=== PATIENT | male | born 1945 | race Caucasian/White ===

== ENCOUNTER 2016-11-28 08:00 | Outpatient (CLI) | payer BC ==
[2016-11-28 14:01] LABS: HEMOGLOBIN A1C 0.85 g/dL
[2016-11-28 14:22] LABS: ALBUMIN/GLOBULIN RATIO 1.3 (1.0-2.2); BILIRUBIN,TOTAL 0.5 mg/dL (0.2-1.0); BUN - BLOOD UREA NITROGEN 27 mg/dL (6-20); CALCIUM 9.4 mg/dL (8.5-10.3); CARBON DIOXIDE - CO2 25 mmol/L (21-32); CHLORIDE 106 mmol/L (101-111); CHOL/HDL RATIO 4.5 (<5.0); CHOLESTEROL 143 mg/dL; CREATININE 1.3 mg/dL (0.6-1.2); GFR - MDRD 55 (>89); GLUCOSE 151 mg/dL (70-100); HDL CHOLESTEROL 32 mg/dL; LDL/HDL RATIO 2.6 (<3.6); POTASSIUM 3.9 mmol/L (3.5-5.0); SODIUM 139 mmol/L (135-145); TOTAL PROTEIN 7.4 g/dL (6.7-8.2); TRIGLYCERIDES 133 mg/dL; VLDL CHOLESTEROL 27 mg/dL
== END 2016-11-28 08:01 | disposition home or self-care (01) ==
LOC: LAB.WCP 08:00
PROVIDERS: ATTEND Physician Assistant Medical
DX: E11.9 Type 2 diabetes mellitus without complications (principal)
CPT/HCPCS: 36415; 80053; 80061; 83036

== ENCOUNTER 2017-02-24 08:00 | Outpatient (CLI) | payer BC ==
[2017-02-24 19:46] LABS: ALBUMIN/GLOBULIN RATIO 1.2 (1.0-2.2); BILIRUBIN,TOTAL 0.6 mg/dL (0.2-1.0); CALCIUM 9.1 mg/dL (8.5-10.3); CREATININE 1.2 mg/dL (0.6-1.2); POTASSIUM 3.9 mmol/L (3.5-5.0); TOTAL PROTEIN 7.6 g/dL (6.7-8.2)
[2017-02-24 20:17] LABS: HEMOGLOBIN A1C 0.96 g/dL
== END 2017-02-24 08:01 | disposition home or self-care (01) ==
LOC: LAB.WCP 08:00
PROVIDERS: ATTEND Physician Assistant Medical
DX: E11.9 Type 2 diabetes mellitus without complications (principal)
CPT/HCPCS: 36415; 80053; 83036

== ENCOUNTER 2017-06-02 10:15 | Outpatient (CLI) | payer BC ==
[2017-06-02 19:08] LABS: BASOPHILS % (AUTO) 0.4 %; EOSINOPHILS # (AUTO) 0.1 10^3/uL (0.0-0.7); EOSINOPHILS % (AUTO) 1.7 %; HGB - HEMOGLOBIN 15.3 g/dL (14.0-18.0); LYMPHOCYTES # (AUTO) 1.7 10^3/uL (1.5-3.5); LYMPHOCYTES % (AUTO) 24.2 %; MEAN CORPUSCULAR HEMOGLOBIN 30.8 pg (27.0-31.0); MEAN CORPUSCULAR HGB CONC 33.4 g/dL (32.0-36.0); MEAN CORPUSCULAR VOLUME 92.2 fL (80.0-94.0); MEAN PLATELET VOLUME 8.7 fL (7.4-11.4); MONOCYTES # (AUTO) 0.6 10^3/uL (0.0-1.0); MONOCYTES % (AUTO) 9.3 %; NEUTROPHILS # (AUTO) 4.4 10^3/uL (1.5-6.6); NEUTROPHILS % (AUTO) 64.4 %; PLT - PLATELET COUNT 225 10^3/uL (130-450); RED BLOOD COUNT 4.97 10^6/uL (4.70-6.10); RED CELL DISTRIBUTION WIDTH 13.7 % (12.0-15.0); WHITE BLOOD COUNT 6.8 x10^3/uL (4.8-10.8)
[2017-06-02 19:26] LABS: ALBUMIN 4.1 g/dL (3.2-5.5); ALBUMIN/GLOBULIN RATIO 1.2 (1.0-2.2); ALKALINE PHOSPHATASE 37 IU/L (42-121); ALT ALANINE AMINOTRANSFERASE 27 IU/L (10-60); AST ASPARTATE AMINOTRANSFERASE 23 IU/L (10-42); BILIRUBIN,TOTAL 0.5 mg/dL (0.2-1.0); BUN - BLOOD UREA NITROGEN 26 mg/dL (6-20); CARBON DIOXIDE - CO2 25 mmol/L (21-32); CHLORIDE 106 mmol/L (101-111); CHOL/HDL RATIO 4.3 (<5.0); CHOLESTEROL 153 mg/dL; CREATININE 1.2 mg/dL (0.6-1.2); GFR - MDRD 60 (>89); GLUCOSE 135 mg/dL (70-100); HDL CHOLESTEROL 36 mg/dL; LDL CHOLESTEROL,CALCULATED 90 mg/dL; LDL/HDL RATIO 2.5 (<3.6); SODIUM 139 mmol/L (135-145); TOTAL PROTEIN 7.5 g/dL (6.7-8.2); VLDL CHOLESTEROL 27 mg/dL
[2017-06-02 19:44] LABS: HB2 TOTAL 16.7 g/dL; HEMOGLOBIN A1C 0.83 g/dL; HEMOGLOBIN A1C % 6.7 % (4.6-6.2)
== END 2017-06-02 10:16 | disposition home or self-care (01) ==
LOC: LAB.WCP 10:15
PROVIDERS: ATTEND Physician Assistant Medical
DX: E11.9 Type 2 diabetes mellitus without complications (principal); E78.1 Pure hyperglyceridemia; Z12.5 Encounter for screening for malignant neoplasm of prostate; K21.9 Gastro-esophageal reflux disease without esophagitis
CPT/HCPCS: 36415; 80053; 80061; 82043; 83036; 83721; 84153; 85025

== ENCOUNTER 2017-09-01 08:24 | Outpatient (CLI) | payer BC ==
[2017-09-01 12:45] LABS: CREATININE 1.1 mg/dL (0.6-1.2)
[2017-09-01 13:08] LABS: HB2 TOTAL 15.7 g/dL; HEMOGLOBIN A1C 0.83 g/dL
== END 2017-09-01 08:25 | disposition home or self-care (01) ==
LOC: LAB.WCP 08:24
PROVIDERS: ATTEND Physician Assistant Medical
DX: E11.9 Type 2 diabetes mellitus without complications (principal)
CPT/HCPCS: 36415; 80048; 83036

== ENCOUNTER 2017-09-18 07:36 | Emergency (ER) | payer BC ==
--- NOTE | 2017-09-18 08:23 | ED Physician Documentation ---
History of Present Illness - Stated complaint Stated Complaint: R ARM NUMBNESS/BACK PX - Chief complaint Chief Complaint: Ext Problem - History obtained from History obtained from: Patient, Family - History of Present Illness Timing: How many days ago (3) - Additonal information Additional information: 72 y/o male with symptoms beginning 3 days ago while he was walking to [place] with low back pain and finger numbness on the right side. He had similar symptoms when returning home from [place]. Symptoms resolved and returned the next day less but worse with exertion. Similar yesterday and then this morning at 4am he was awakened with pain in his back both arms his neck and a headache and this was much worse than previously. He was not able to get dressed and his reports that he was pale and appeared ill. His pain resolved after about one hour and then he was able to get dressed and he went outside to test his exercise tolerance and found he did not have symptoms. He was perplexed and came to the ED with symptoms resolved except for a slight amount of right arm numbness. He reports some substernal pain with the episode this morning and a stomach ache over the weekend. Review of Systems Constitutional: denies: Fever Eyes: denies: Decreased vision Ears: denies: Ear pain Nose: denies: Congestion Throat: denies: Sore throat Cardiac: reports: Chest pain / pressure. denies: Palpitations, Pedal edema, Calf pain Respiratory: denies: Dyspnea, Cough, Wheezing GI: reports: Abdominal Pain, Diarrhea (once yesterday). denies: Nausea, Vomiting, Constipation : denies: Dysuria, Frequency Skin: denies: Rash Musculoskeletal: reports: Neck pain, Back pain Neurologic: reports: Numbness, Headache. denies: Generalized weakness, Focal weakness, Head injury, LOC PD PAST MEDICAL HISTORY - Past Medical History Past Medical History: Yes Cardiovascular: Hypertension, High cholesterol Respiratory: Other Endocrine/Autoimmune: Type 2 diabetes GI: Colon polyps : Benign prostate hypertrophy HEENT: None Psych: Anxiety Derm: None - Past Surgical History Past Surgical History: Yes General: Cholecystectomy, Appendectomy HEENT: Tonsil/Adenoidectomy, Other - Present Medications Home Medications: Ambulatory Orders Medication Instructions Recorded Confirmed Azelastine HCl [Astelin] 02/10/14 02/10/14 Cyanocobalamin (Vitamin B-12) 250 mcg PO 02/10/14 02/10/14 [Vitamin B-12] Fenofibrate 160 mg PO DAILY 02/10/14 02/11/14 Fluticasone [Flonase] 1 sprays MANI BID PRN 02/10/14 02/10/14 Losartan [Cozaar] 50 mg PO DAILY 02/10/14 02/10/14 Metformin HCl 1,000 mg PO DAILY 02/10/14 02/11/14 [place]-3 Fatty Acids [[place]-3] 2,000 mg PO DAILY 02/10/14 02/11/14 Simvastatin 20 mg PO DAILY 02/10/14 02/11/14 Vit D3-Vit K/Berberine/Hops 1 tab ORAL DAILY 02/10/14 02/11/14 [Ostera Tablet] raNITIdine [Zantac] 150 mg ORAL DAILY 02/10/14 02/11/14 - Allergies Allergies/Adverse Reactions: Allergies Allergy/AdvReac Type Severity Reaction Status Date / Time Penicillins Allergy Edema Verified 02/10/14 10:27 diphenhydramine HCl * AdvReac Unknown Verified 02/10/14 10:27 [From Benadryl] lisinopril AdvReac Unknown Verified 02/10/14 10:27 prednisone AdvReac Unknown Verified 02/10/14 10:27 - Social History Does the pt smoke?: No Smoking Status: Never smoker Does the pt drink ETOH?: No - Immunizations Immunizations are current?: Yes PD ED PE NORMAL - Vitals Vital signs reviewed: Yes (hypertensive mild ) - General General: Alert and oriented X 3, No acute distress, Well developed/nourished - HEENT HEENT: Atraumatic, PERRL, EOMI - Neck Neck: Supple, no meningeal sign, No bony TTP - Cardiac Cardiac: RRR, No murmur - Respiratory Respiratory: No respiratory distress, Clear bilaterally - Abdomen Abdomen: Soft, Non tender - Back Back: No CVA TTP, No spinal TTP - Derm Derm: Normal color, Warm and dry, No rash - Extremities Extremities: No deformity, No edema - Neuro Neuro: No motor deficit, No sensory deficit Eye Opening: Spontaneous Motor: Obeys Commands Verbal: Oriented GCS Score: 15 - Psych Psych: Normal mood, Normal affect Results - Vitals Vitals: Vital Signs - 24 hr 09/18/17 09/18/17 07:44 10:24 Temperature 36.2 C L 36.6 C Heart Rate 88 79 Respiratory 18 18 Rate Blood Pressure 138/89 H 146/89 H O2 Saturation 95 96 Oxygen O2 Source Room air - EKG (time done) 0835 Rate: Rate (enter#) (82) Rhythm: NSR Intervals: RBBB Ischemia: Q waves (consistent with prior inferior) Compare to prior EKG: Old EKG unavailable Computer interpretation: Agree with computer - Labs Labs: Laboratory Tests 09/18/17 09/18/17 09/18/17 08:33 08:33 08:33 WBC 5.7 RBC 4.76 Hgb 14.8 Hct 43.2 MCV 90.7 MCH 31.2 H MCHC 34.4 RDW 13.8 Plt Count 192 MPV 7.5 Neut # 3.8 Lymph # 1.1 L Cole # 0.7 Eos # 0.2 Baso # 0.0 Absolute Nucleated RBC 0.00 Nucleated RBC % 0.0 Sodium 137 Potassium 3.9 Chloride 105 Carbon Dioxide 24 Anion Gap 8.0 BUN 25 H Creatinine 1.2 Estimated GFR (MDRD) 60 L Glucose 164 H Calcium 8.9 Total Bilirubin 0.9 AST 20 ALT 21 Alkaline Phosphatase 38 L Troponin I 0.08 Total Protein 7.4 Albumin 3.9 Globulin 3.5 Albumin/Globulin Ratio 1.1 Lipase 21 L 09/18/17 10:40 WBC RBC Hgb Hct MCV MCH MCHC RDW Plt Count MPV Neut # Lymph # Cole # Eos # Baso # Absolute Nucleated RBC Nucleated RBC % Sodium Potassium Chloride Carbon Dioxide Anion Gap BUN Creatinine Estimated GFR (MDRD) Glucose Calcium Total Bilirubin AST ALT Alkaline Phosphatase Troponin I 0.10 Total Protein Albumin Globulin Albumin/Globulin Ratio Lipase - Rads (name of study) 2 veiw chest Radiology: Prelim report reviewed (Impression: No active cardiopulmonary disease.), EMP read indepedently, See rad report PD MEDICAL DECISION MAKING - ED course Complexity details: reviewed results, re-evaluated patient, considered differential, d/w patient, d/w family ED course: 72-year-old male with atypical symptoms of chest pain has some exertional component to his complaints and development of symptoms while asleep. The episode he had this morning was significant in that it was much worse than what he experienced 2 previous days and this morning as he arrives to the emergency department his symptoms are resolved but he does have a mild elevation in his in his troponin. A follow-up troponin II hours after is slightly increased from that. The patient's electric cardiogram shows a right bundle branch block and inferior Q waves and we have nothing for comparison. I suspect the patient may have an NSTEMI and arrangements were made for transfer the patient to [facility] in [place] with Dr. Caryn holder. He is given 324 mg of aspirin and started on a heparin drip. Departure - Departure Disposition: 02 Transfer Acute Care Hosp Clinical Impression: NSTEMI (non-ST elevated myocardial infarction) Condition: Stable
[2017-09-18 08:40] LABS: BASOPHILS % (AUTO) 0.4 %; EOSINOPHILS # (AUTO) 0.2 10^3/uL (0.0-0.7); HGB - HEMOGLOBIN 14.8 g/dL (14.0-18.0); LYMPHOCYTES # (AUTO) 1.1 10^3/uL (1.5-3.5); LYMPHOCYTES % (AUTO) 19.1 %; MEAN CORPUSCULAR HEMOGLOBIN 31.2 pg (27.0-31.0); MEAN CORPUSCULAR HGB CONC 34.4 g/dL (32.0-36.0); MEAN CORPUSCULAR VOLUME 90.7 fL (80.0-94.0); MEAN PLATELET VOLUME 7.5 fL (7.4-11.4); MONOCYTES # (AUTO) 0.7 10^3/uL (0.0-1.0); MONOCYTES % (AUTO) 11.5 %; NEUTROPHILS # (AUTO) 3.8 10^3/uL (1.5-6.6); PLT - PLATELET COUNT 192 10^3/uL (130-450); RED BLOOD COUNT 4.76 10^6/uL (4.70-6.10); RED CELL DISTRIBUTION WIDTH 13.8 % (12.0-15.0); WHITE BLOOD COUNT 5.7 x10^3/uL (4.8-10.8)
[2017-09-18 08:51] LABS: ALBUMIN 3.9 g/dL (3.2-5.5); ALBUMIN/GLOBULIN RATIO 1.1 (1.0-2.2); BILIRUBIN,TOTAL 0.9 mg/dL (0.2-1.0); CALCIUM 8.9 mg/dL (8.5-10.3); CREATININE 1.2 mg/dL (0.6-1.2); TOTAL PROTEIN 7.4 g/dL (6.7-8.2)
--- NOTE | 2017-09-18 09:49 | XRAY Report ---
EXAM: CHEST RADIOGRAPHY EXAM DATE: 09/18/2017 09:03 AM. CLINICAL HISTORY: Chest pain. COMPARISON: None. TECHNIQUE: 2 views. FINDINGS: Lungs/Pleura: No focal opacities evident. No pleural effusion. No pneumothorax. Normal volumes. Mediastinum: Heart and mediastinal contours are unremarkable. Other: Mild wedging mid thoracic vertebral bodies IMPRESSION: No active cardiopulmonary disease [facility] Referring Provider Line: [phone] SITE ID: [id number]
--- NOTE | 2017-09-18 09:49 | XRAY Preliminary Report ---
Exam: XR CHEST 2 VIEW X-RAY IMPRESSION: No active cardiopulmonary disease [facility] SITE ID: [id number]
[2017-09-18] MEDS ORDERED: HEPARIN 5,000 UNIT/ML VIAL IVP ONE (11:57)
[2017-09-18] MEDS ORDERED: ASPIRIN CHEW 81 MG TABLET PO STA (11:57)
[2017-09-18] MEDS ORDERED: HEPARIN 25000UNITS/500ML (D5W) 25,000 UNIT/500 ML BAG IV STA (12:47)
[2017-09-18 12:51] VITALS: BP 134/112
[2017-09-18] MEDS ORDERED: HEPARIN 25000UNITS/500ML (D5W) 25,000 UNIT/500 ML BAG IV ONE (12:58)
== END 2017-09-18 12:53 | disposition short-term general hospital (02) ==
LOC: ED 07:36
DX: I21.4 Non-ST elevation (NSTEMI) myocardial infarction (principal); I45.10 Unspecified right bundle-branch block; I10 Essential (primary) hypertension; E78.00 Pure hypercholesterolemia, unspecified; E11.9 Type 2 diabetes mellitus without complications; Z79.84 Long term (current) use of oral hypoglycemic drugs
CPT/HCPCS: 36415; 71046; 80053; 83690; 84484; 85025; 93005; 96374; 99284; A9270

== ENCOUNTER 2017-09-18 12:56 | Outpatient (CLI) | payer BC | END 2017-09-18 12:57 | disposition short-term general hospital (02) | LOC: EMS 12:56 | PROVIDERS: ATTEND Surgery | DX: R07.9 Chest pain, unspecified (principal) | CPT/HCPCS: A0425; A0426 ==

== ENCOUNTER 2017-10-03 08:00 | Outpatient (CLI) | payer BC ==
[2017-10-03 19:23] LABS: CALCIUM 9.1 mg/dL (8.5-10.3); CREATININE 1.1 mg/dL (0.6-1.2)
== END 2017-10-03 08:01 | disposition home or self-care (01) ==
LOC: LAB.WCP 08:00
PROVIDERS: ATTEND Family Medicine
DX: H53.72 Impaired contrast sensitivity (principal)
CPT/HCPCS: 36415; 80048

== ENCOUNTER 2017-11-30 07:46 | Outpatient (CLI) | payer BC ==
[2017-11-30 12:52] LABS: ALBUMIN 3.8 g/dL (3.2-5.5); ALBUMIN/GLOBULIN RATIO 1.2 (1.0-2.2); ALKALINE PHOSPHATASE 35 IU/L (42-121); ALT ALANINE AMINOTRANSFERASE 18 IU/L (10-60); AST ASPARTATE AMINOTRANSFERASE 20 IU/L (10-42); BILIRUBIN,TOTAL 0.9 mg/dL (0.2-1.0); BUN - BLOOD UREA NITROGEN 18 mg/dL (6-20); CARBON DIOXIDE - CO2 25 mmol/L (21-32); CHLORIDE 107 mmol/L (101-111); CHOL/HDL RATIO 4.4 (<5.0); CHOLESTEROL 115 mg/dL; CREATININE 1.2 mg/dL (0.6-1.2); GFR - MDRD 60 (>89); GLUCOSE 123 mg/dL (70-100); HDL CHOLESTEROL 26 mg/dL; LDL CHOLESTEROL,CALCULATED 65 mg/dL; LDL/HDL RATIO 2.5 (<3.6); SODIUM 139 mmol/L (135-145); TOTAL PROTEIN 7.1 g/dL (6.7-8.2); VLDL CHOLESTEROL 24 mg/dL
[2017-11-30 13:25] LABS: HB2 TOTAL 14.9 g/dL; HEMOGLOBIN A1C 0.71 g/dL; HEMOGLOBIN A1C % 6.5 % (4.6-6.2)
== END 2017-11-30 07:47 | disposition home or self-care (01) ==
LOC: LAB.WCP 07:46
PROVIDERS: ATTEND Physician Assistant Medical
DX: E11.9 Type 2 diabetes mellitus without complications (principal)
CPT/HCPCS: 36415; 80053; 80061; 83036; 83721

== ENCOUNTER 2018-03-05 08:53 | Outpatient (CLI) | payer BC ==
[2018-03-05 14:44] LABS: HB2 TOTAL 14.4 g/dL; HEMOGLOBIN A1C 0.63 g/dL; HEMOGLOBIN A1C % 6.2 % (4.6-6.2)
[2018-03-05 14:47] LABS: CALCIUM 9.4 mg/dL (8.5-10.3); CREATININE 1.2 mg/dL (0.6-1.2)
== END 2018-03-05 08:54 | disposition home or self-care (01) ==
LOC: LAB.WCP 08:53
PROVIDERS: ATTEND Physician Assistant Medical
DX: E11.9 Type 2 diabetes mellitus without complications (principal)
CPT/HCPCS: 36415; 80048; 83036

== ENCOUNTER 2018-07-19 08:00 | Outpatient (CLI) | payer BC ==
[2018-07-19 14:07] LABS: ALBUMIN/GLOBULIN RATIO 1.3 (1.0-2.2); ALKALINE PHOSPHATASE 37 IU/L (42-121); ALT ALANINE AMINOTRANSFERASE 20 IU/L (10-60); AST ASPARTATE AMINOTRANSFERASE 20 IU/L (10-42); BILIRUBIN,TOTAL 0.6 mg/dL (0.2-1.0); BUN - BLOOD UREA NITROGEN 30 mg/dL (6-20); CARBON DIOXIDE - CO2 28 mmol/L (21-32); CHLORIDE 106 mmol/L (101-111); CHOL/HDL RATIO 3.2 (<5.0); CHOLESTEROL 125 mg/dL; GFR - MDRD 74 (>89); GLUCOSE 133 mg/dL (70-100); HDL CHOLESTEROL 39 mg/dL; LDL CHOLESTEROL,CALCULATED 64 mg/dL; LDL/HDL RATIO 1.6 (<3.6); SODIUM 141 mmol/L (135-145); TOTAL PROTEIN 7.2 g/dL (6.7-8.2); VLDL CHOLESTEROL 22 mg/dL
[2018-07-19 14:48] LABS: HB2 TOTAL 15.6 g/dL; HEMOGLOBIN A1C 0.76 g/dL; HEMOGLOBIN A1C % 6.6 % (4.6-6.2)
== END 2018-07-19 08:01 | disposition home or self-care (01) ==
LOC: LAB.WCP 08:00
PROVIDERS: ATTEND Physician Assistant Medical
DX: E11.9 Type 2 diabetes mellitus without complications (principal)
CPT/HCPCS: 36415; 80053; 80061; 83036; 83721

== ENCOUNTER 2018-09-13 05:56 | Day surgery (SDC) | payer BC ==
[2018-09-13] MEDS ORDERED: KETOROLAC 0.45% OPHTH DROPS ONE (06:27)
[2018-09-13] MEDS ORDERED: PROPARACAINE 0.5% OPHTH DROPS 15 ML ONE (06:28)
[2018-09-13] MEDS ORDERED: PHENYLEPHRINE 2.5% OPHTH 2 ML DROPS ONE (06:28)
[2018-09-13] MEDS ORDERED: CYCLOPENTOLATE 1% OPHTH DROPS 2 ML ONE (06:28)
[2018-09-13] MEDS ORDERED: LACTATED RINGERS 500 ML IV ONE (06:32)
[2018-09-13] MEDS ORDERED: KETOROLAC 0.45% OPHTH DROPS LEFTEYE ONE (06:40)
[2018-09-13] MEDS ORDERED: CYCLOPENTOLATE 1% OPHTH DROPS 2 ML LEFTEYE ONE (06:40)
[2018-09-13] MEDS ORDERED: PROPARACAINE 0.5% OPHTH DROPS 15 ML LEFTEYE ONE ×2 (06:40→07:36)
[2018-09-13] MEDS ORDERED: PHENYLEPHRINE 2.5% OPHTH 2 ML DROPS LEFTEYE ONE (06:40)
--- NOTE | 2018-09-13 07:01 | ANESTHESIA ---
Pre-Anesthesia VS, & Labs - Diagnosis L nuclear sclerotic cataract - Procedure L extraction cataract with IOL Vital Signs: Temp Pulse Resp BP Pulse Ox 36.8 C 70 16 137/76 H 99 09/13/18 06:33 09/13/18 06:33 09/13/18 06:33 09/13/18 06:33 09/13/18 06:33 Height 5 ft 7 in Weight (kg) 97.9 kg Body Mass Index 32.5 - Lab Results Current Lab Results: Laboratory Tests 09/13/18 06:48: POC Whole Bld Glucose 129 H Home Medications and Allergies Home Medications: Ambulatory Orders Atorvastatin Calcium 80 mg PO DAILY 09/12/18 Metoprolol Succinate 25 mg PO DAILY 09/12/18 Azelastine HCl [Astelin] 1 puffs MANI DAILY 02/10/14 Cyanocobalamin (Vitamin B-12) [Vitamin B-12] 250 mcg PO DAILY 02/10/14 Fenofibrate 160 mg PO DAILY 02/10/14 Fluticasone [Flonase] 1 sprays MANI BID PRN 02/10/14 Losartan [Cozaar] 50 mg PO DAILY 02/10/14 Metformin HCl 1,000 mg PO DAILY 02/10/14 [place]-3 Fatty Acids [[place]-3] 2,000 mg PO DAILY 02/10/14 Vit D3-Vit K/Berberine/Hops [Ostera Tablet] 1 tab ORAL DAILY 02/10/14 raNITIdine [Zantac] 150 mg ORAL DAILY 02/10/14 Atorvastatin Calcium 80 mg PO DAILY 09/12/18 Metoprolol Succinate 25 mg PO DAILY 09/12/18 Allergies/Adverse Reactions: Allergies Allergy/AdvReac Type Severity Reaction Status Date / Time Penicillins Allergy Edema Verified 02/10/14 10:27 diphenhydramine HCl * AdvReac Unknown Verified 02/10/14 10:27 [From Benadryl] lisinopril AdvReac Unknown Verified 02/10/14 10:27 prednisone AdvReac Unknown Verified 02/10/14 10:27 Anes History & Medical History - Anesthetic History Anesthesia Complications: reports: No previous complications Family history of Anesthesia Complications: Denies Family history of Malignant Hyperthermia: Denies - Medical History Cardiovascular: reports: Hypertension, High cholesterol, ID, Other (stent 09/2017) Pulmonary: reports: Sleep apnea, Other Gastrointestinal: reports: GERD, Colon polyps Urinary: reports: Benign prostate hypertrophy, Kidney stones Musculoskeletal: reports: Chronic back pain Endocrine/Autoimmune: reports: Type 2 diabetes Skin: reports: None Smoking Status: Never smoker - Surgical History General: Cholecystectomy, Appendectomy, Colonoscopy Eyes Ears Nose Throat (EENT): Tonsil/Adenoidectomy, Other Cardiothoracic: Coronary stent Exam General: Alert, Oriented x3 Dental: WNL Mouth Openin Fingerbreadth Neck Mobility: Normal Mallampati classification: II Thyromental Distance: 4-6 cm Respiratory: Lungs clear, Normal breath sounds, No respiratory distress Cardiovascular: Regular rate Neurological: Normal speech Mental/Cognitive Status: Alert/Oriented X3, Normal for patient Cognitive Status: Within normal limits Plan Anesthesia Type: MAC Consent for Procedure(s) Verified and Reviewed: Yes Code Status: Attempt Resuscitation ASA classification: 3-Severe systemic disease Is this case an emergency?: No
[2018-09-13] MEDS ORDERED: TRIAMCIN/MOXIFLOX OPHTHALMIC 0.6 ML VIAL IO ONE ×2 (07:05→07:36)
[2018-09-13] MEDS ORDERED: TIMOLOL 0.5% OPHTH DROPS ONE (07:06)
[2018-09-13] MEDS ORDERED: EPINEPHrine 1 MG/ML AMP ONE (07:06)
[2018-09-13] MEDS ORDERED: BRIMONIDINE 0.2% OPHTH DROPS 5 ML ONE (07:06)
[2018-09-13] MEDS ORDERED: BSS/LIDOCAINE/EPINEPHRINE 1 ML SYRINGE ONE (07:07)
[2018-09-13] MEDS ORDERED: VANCOMYCIN OPHTHALMI 8MG/0.8ML 8 MG/0.8 ML SYRINGE IO ONE (07:07)
[2018-09-13] MEDS ORDERED: MIDAZOLAM 2 MG/2 ML VIAL IVP ONE (07:30)
[2018-09-13] MEDS ORDERED: EPINEPHrine 1 MG/ML AMP IVP ONE (07:35)
[2018-09-13] MEDS ORDERED: BRIMONIDINE 0.2% OPHTH DROPS 5 ML OPTH ONE (07:35)
[2018-09-13] MEDS ORDERED: CHONDR SULF/HYALURONATE SYRINGE IO ONE (07:35)
[2018-09-13] MEDS ORDERED: TIMOLOL 0.5% OPHTH DROPS OPTH ONE (07:35)
[2018-09-13] MEDS ORDERED: BSS/LIDOCAINE/EPINEPHRINE 1 ML SYRINGE IO ONE (07:36)
[2018-09-13 08:02] VITALS: BP 112/60
--- NOTE | 2018-09-13 11:20 | OPERATIVE REPORT ---
DATE OF SERVICE: 09/13/2018 Physician: Víctor Vela MD PREOPERATIVE DIAGNOSIS: Visually significant cataract, left eye. This was his first cataract surger y. POSTOPERATIVE DIAGNOSIS: Visually significant cataract, left eye. This was his first cataract surge ry. DESCRIPTION OF PROCEDURE: Phacoemulsification with posterior chamber intraocular lens implant, left eye. SURGEON: Víctor Vela MD ANESTHESIA: Monitored anesthesia care. COMPLICATIONS: None. OPERATIVE INDICATIONS: This is a 73-year-old man with progressive vision loss in the left eye due to a 2-3+ nuclear sclerotic cataract. Best corrected visual acuity was 20/30 with glare to 20/70 in th e left eye. Indications for surgery are overall decrease in vision, difficulty seeing words on a com puter screen; difficulty seeing words, closed caption or game scores on TV; and difficulty seeing str eet signs. He was consented at length concerning risks and benefits of cataract surgery, after which he expressed a desire to proceed with surgery. OPERATIVE PROCEDURE: The patient was taken into OR #3 and placed under monitored anesthesia care. A surgical timeout was conducted confirming correct patient, correct procedure, and correct surgical s ite. He was given topical anesthesia, and then prepped and draped in the usual sterile fashion. The eye was entered at the 6 and 3 o'clock positions. Intracameral Shugarcaine was injected into the an terior chamber, followed by Viscoat. A continuous-tear curvilinear capsulorrhexis was performed. Th e nucleus was hydrodissected and phacoemulsified. The cortex was evacuated using automated infusion and aspiration. Provisc was injected into the capsular bag, and a 14.0 diopter intraocular lens inse rted in the bag. Approximately 0.8 mL of a mixture of triamcinolone, moxifloxacin, and vancomycin wa s injected subconjunctivally in the superior quadrant for infection and inflammation prophylaxis. I and A was used to evacuate the viscoelastic materials. The eye was inflated to a physiologic pressur e using a balanced salt solution and found to be watertight. The patient was taken from the [facility] room in good condition and given postoperative instructions. TD: 09/13/2018 07:55
== END 2018-09-13 05:57 | disposition home or self-care (01) ==
LOC: SDS 05:56
PROVIDERS: ATTEND Ophthalmology
PROC: 08RK3JZ Replacement of Left Lens with Synthetic Substitute, Percutaneous Approach (ICD-10-PCS; principal; 2018-09-13 07:30)
DX: E11.36 Type 2 diabetes mellitus with diabetic cataract (principal); I10 Essential (primary) hypertension; E78.00 Pure hypercholesterolemia, unspecified; G47.30 Sleep apnea, unspecified; K21.9 Gastro-esophageal reflux disease without esophagitis; N40.0 Benign prostatic hyperplasia without lower urinary tract symptoms; G89.29 Other chronic pain; M54.9 Dorsalgia, unspecified; I25.2 Old myocardial infarction; Z95.5 Presence of coronary angioplasty implant and graft; Z79.82 Long term (current) use of aspirin; Z79.84 Long term (current) use of oral hypoglycemic drugs
CPT/HCPCS: 66984; A9270; J3490; V2632

== ENCOUNTER 2018-10-25 07:50 | Outpatient (CLI) | payer BC ==
[2018-10-25 14:21] LABS: CALCIUM 9.2 mg/dL (8.5-10.3); CREATININE 1.3 mg/dL (0.6-1.2)
== END 2018-10-25 07:51 | disposition home or self-care (01) ==
LOC: LAB.WCP 07:50
PROVIDERS: ATTEND Physician Assistant Medical
DX: E11.9 Type 2 diabetes mellitus without complications (principal)
CPT/HCPCS: 36415; 80048; 81599; 83036

== ENCOUNTER 2018-11-01 07:38 | Day surgery (SDC) | payer BC ==
[~2018-11-01 07:38] MED LIST: BRIMONIDINE 0.2% OPHTH DROPS 5 ML ONE; BSS/LIDOCAINE/EPINEPHRINE 1 ML SYRINGE ONE; CYCLOPENTOLATE 1% OPHTH DROPS 2 ML ONE; EPINEPHrine 1 MG/ML AMP ONE; KETOROLAC 0.45% OPHTH DROPS ONE; PHENYLEPHRINE 2.5% OPHTH 2 ML DROPS ONE; PROPARACAINE 0.5% OPHTH DROPS 15 ML ONE; TIMOLOL 0.5% OPHTH DROPS ONE; TRIAMCIN/MOXIFLOX OPHTHALMIC 0.6 ML VIAL IO ONE; VANCOMYCIN OPHTHALMI 8MG/0.8ML 8 MG/0.8 ML SYRINGE IO ONE
[2018-11-01] MEDS ORDERED: PROPARACAINE 0.5% OPHTH DROPS 15 ML RIGHTEYE ONE (07:57)
[2018-11-01] MEDS ORDERED: KETOROLAC 0.45% OPHTH DROPS RIGHTEYE ONE (07:57)
[2018-11-01] MEDS ORDERED: PHENYLEPHRINE 2.5% OPHTH 2 ML DROPS RIGHTEYE ONE (07:57)
[2018-11-01] MEDS ORDERED: CYCLOPENTOLATE 1% OPHTH DROPS 2 ML RIGHTEYE ONE (07:57)
[2018-11-01] MEDS ORDERED: LACTATED RINGERS 500 ML IV ONE (08:00)
--- NOTE | 2018-11-01 08:17 | ANESTHESIA ---
Pre-Anesthesia VS, & Labs - Diagnosis right nuclear sclerotic cataract - Procedure right cataract extraction with intraocular lens Vital Signs: Temp Pulse Resp BP Pulse Ox 36.2 C L 65 18 127/86 H 99 11/01/18 07:48 11/01/18 07:48 11/01/18 07:48 11/01/18 07:48 11/01/18 07:48 Height 5 ft 7 in Weight (kg) 100 kg Body Mass Index 32.5 - NPO >8 hours Home Medications and Allergies Cyanocobalamin (Vitamin B-12) [Vitamin B-12] 250 mcg PO DAILY 02/10/14 Fenofibrate 160 mg PO DAILY 02/10/14 Losartan [Cozaar] 50 mg PO DAILY 02/10/14 Metformin HCl 1,000 mg PO DAILY 02/10/14 [place]-3 Fatty Acids [[place]-3] 2,000 mg PO DAILY 02/10/14 Vit D3-Vit K/Berberine/Hops [Ostera Tablet] 1 tab ORAL DAILY 02/10/14 raNITIdine [Zantac] 150 mg ORAL DAILY 02/10/14 Atorvastatin Calcium 80 mg PO DAILY 09/12/18 Metoprolol Succinate 25 mg PO DAILY 09/12/18 Allergies/Adverse Reactions: Allergies Allergy/AdvReac Type Severity Reaction Status Date / Time Penicillins Allergy Edema Verified 10/31/18 15:29 diphenhydramine HCl * AdvReac Unknown Verified 10/31/18 15:29 [From Benadryl] lisinopril AdvReac Unknown Verified 10/31/18 15:29 prednisone AdvReac Unknown Verified 10/31/18 15:29 Anes History & Medical History - Anesthetic History Anesthesia Complications: reports: Pseudocholinesterase deficiency (possible had 8 hour delay waking up and felt like "I was underwater"), Prolonged PACU stay, Slow wake-up - Medical History Cardiovascular: reports: Hypertension, High cholesterol, Coronary artery disease Pulmonary: reports: None Gastrointestinal: reports: GERD Urinary: reports: Kidney stones Musculoskeletal: reports: Osteoarthritis, Other Endocrine/Autoimmune: reports: Type 2 diabetes Skin: reports: Herpes zoster Smoking Status: Never smoker - Surgical History General: Cholecystectomy, Appendectomy Eyes Ears Nose Throat (EENT): Tonsil/Adenoidectomy Cardiothoracic: Coronary stent, Cardiac catheterization Exam Dental: WNL, Dentures full Upper, Dentures full Lower Mouth Opening: Greater than 4 Fingerbreadths Mallampati classification: III Thyromental Distance: greater than 6 cm Respiratory: Lungs clear Cardiovascular: Regular rate, Normal S1, Normal S2 Plan Anesthesia Type: MAC Consent for Procedure(s) Verified and Reviewed: Yes Code Status: Attempt Resuscitation ASA classification: 3-Severe systemic disease Is this case an emergency?: No
[2018-11-01] MEDS ORDERED: MIDAZOLAM 2 MG/2 ML VIAL IVP ONE (09:00)
[2018-11-01] MEDS ORDERED: BRIMONIDINE 0.2% OPHTH DROPS 5 ML OPTH ONE (09:05)
[2018-11-01] MEDS ORDERED: EPINEPHrine 1 MG/ML AMP IVP ONE (09:05)
[2018-11-01] MEDS ORDERED: CHONDR SULF/HYALURONATE SYRINGE IO ONE (09:05)
[2018-11-01] MEDS ORDERED: TIMOLOL 0.5% OPHTH DROPS OPTH ONE (09:05)
[2018-11-01] MEDS ORDERED: TRIAMCIN/MOXIFLOX OPHTHALMIC 0.6 ML VIAL IO ONE (09:06)
[2018-11-01] MEDS ORDERED: BSS/LIDOCAINE/EPINEPHRINE 1 ML SYRINGE IO ONE (09:06)
[2018-11-01] MEDS ORDERED: VANCOMYCIN OPHTHALMI 8MG/0.8ML 8 MG/0.8 ML SYRINGE IO ONE (09:07)
[2018-11-01 09:14] VITALS: BP 110/60
--- NOTE | 2018-11-01 12:31 | OPERATIVE REPORT ---
DATE OF SERVICE: 11/01/2018 Physician: Víctor Vela MD PREOPERATIVE DIAGNOSIS: Visually significant cataract, right eye. Cataract surgery was performed on the left eye on a 09/13/2018 POSTOPERATIVE DIAGNOSIS: Visually significant cataract, right eye. Cataract surgery was performed o n the left eye on a 09/13/2018 PROCEDURE: Phacoemulsification with posterior chamber intraocular lens implant, right eye. SURGEON: Víctor Vela MD ANESTHESIA: Monitored anesthesia care. COMPLICATIONS: None. OPERATIVE INDICATIONS: This is a 73-year-old man with progressive vision loss in the right eye due t o 2 to 3+ nuclear sclerotic cataract. Best corrected visual acuity was 20/25, with glare to 20/50 in the right eye. Indications for surgery are overall decrease in vision, difficulty seeing words, khai sed captions or game scores on TV and difficulty seeing street signs. He was consented at length con cerning the risks and benefits of cataract surgery, after which he expressed a desire to proceed with surgery. OPERATIVE PROCEDURE: Patient was taken into OR #3 and placed under monitored anesthesia care. A josé gical timeout was conducted confirming the correct patient, correct procedure, and correct surgical s ite. He was given topical anesthesia and then prepped and draped in the usual sterile fashion. The eye was entered at the 12 and 9 o'clock positions. Intracameral Shugarcaine was injected into the an terior chamber, followed by Viscoat. A continuous-tear curvilinear capsulorrhexis was performed. Th e nucleus was hydrodissected and phacoemulsified. The cortex was evacuated using automated infusion and aspiration. Provisc was injected into the capsular bag, and a 12.5 diopter intraocular lens inse rted in the bag. Approximately 0.8 mL of a mixture of triamcinolone, moxifloxacin and vancomycin was injected subconjunctivally in the superior quadrant for infection and inflammation prophylaxis. I a nd A was used to evacuate the viscoelastic materials. The eye was inflated to physiologic pressure u sing balanced salt solution and found to be watertight. Patient was taken from the operating room in good condition and given postoperative instructions. TD: 11/01/2018 09:21
== END 2018-11-01 07:39 | disposition home or self-care (01) ==
LOC: SDS 07:38
PROVIDERS: ATTEND Ophthalmology
PROC: 08RJ3JZ Replacement of Right Lens with Synthetic Substitute, Percutaneous Approach (ICD-10-PCS; principal; 2018-11-01 09:00)
DX: H25.11 Age-related nuclear cataract, right eye (principal); E11.9 Type 2 diabetes mellitus without complications; I10 Essential (primary) hypertension; I25.2 Old myocardial infarction; I25.10 Atherosclerotic heart disease of native coronary artery without angina pectoris
CPT/HCPCS: 66984; A9270; J3490; V2632

== ENCOUNTER 2018-11-12 14:54 | Outpatient (CLI) | payer BC ==
--- NOTE | 2018-11-13 11:33 | CT Report ---
Reason: PULMONARY NODULE Procedure Date: 11/12/2018 Accession Number: [id number] / [id number] Procedure: CT - CHEST WO CPT Code: FULL RESULT: EXAM: CT CHEST EXAM DATE: 11/12/2018 03:15 PM. CLINICAL HISTORY: PULMONARY NODULE. COMPARISONS: CHEST 2 VIEW 09/18/2017 8:26 AM. TECHNIQUE: Routine helical CT imaging was performed through the chest. IV contrast: None. Reconstructions: Coronal and sagittal. In accordance with CT protocol optimization, one or more of the following dose reduction techniques were utilized for this exam: automated exposure control, adjustment of mA and/or KV based on patient size, or use of iterative reconstructive technique. FINDINGS: Lungs/Pleura: Multiple bilateral small lung nodules. Last Model Maker nodules described on series 4 4 mm right upper lobe laterally image 29. 4 mm nodule left lingula image 33 4 mm nodule laterally left lingula image 36 4 mm nodule left lower lobe laterally image 38 7 mm nodule left lower lobe posterior segment image 40 Calcified granuloma right lung Bibasilar atelectasis or scarring. Mediastinum: Mild to moderate coronary artery calcifications. No adenopathy or masses. The heart and great vessels are normal. Bones: Unremarkable. Visualized Abdomen: Right lobe liver cyst 3.3 cm. Other: None. IMPRESSION: 1. Multiple bilateral lung nodules largest [address] at 3-6 months if no additional history for malignancy. [facility]
== END 2018-11-12 14:55 | disposition home or self-care (01) ==
LOC: DI 14:54
PROVIDERS: ATTEND Physician Assistant Medical
DX: R91.8 Other nonspecific abnormal finding of lung field (principal)
CPT/HCPCS: 71250

== ENCOUNTER 2018-12-27 11:30 | Outpatient (CLI) | payer BC ==
--- NOTE | 2018-12-27 19:51 | XRAY Report ---
Reason: LOW BACK PAIN Procedure Date: 12/27/2018 Accession Number: [id number] / [id number] Procedure: WCP - Lumbar Spine 2 View CPT Code: FULL RESULT: EXAM: LUMBOSACRAL SPINE RADIOGRAPHY EXAM DATE: 12/27/2018 11:30 AM. CLINICAL HISTORY: LOW BACK PAIN. Chronic pain. No known injury. COMPARISONS: CHEST W/O 11/12/2018 3:[address] 03/01/2011. TECHNIQUE: 3 views. FINDINGS: Alignment: Normal. No spondylolisthesis or scoliosis. Bones: 6 [id number] lumber type vertebral bodies are present. No fractures or bone lesions. Disks: Normal. Disk heights are maintained. Facets: Mild lower lumbar degenerative facet disease. Sacroiliac Joints: Unremarkable. Soft Tissues: Right upper quadrant surgical clips. The visualized bowel gas pattern is normal. IMPRESSION: 1. No acute abnormality. 2. Mild lower lumbar degenerative facet disease. 3. 6 rcv-[id number] lumbar type vertebral bodies. [facility]
== END 2018-12-27 23:59 | disposition home or self-care (01) ==
LOC: DI.WCP 11:30 → EDSTATUS 13:10 → DI.WCP 23:59
PROVIDERS: ATTEND Family Medicine
DX: M47.816 Spondylosis without myelopathy or radiculopathy, lumbar region (principal)
CPT/HCPCS: 72100

== ENCOUNTER 2019-01-24 07:52 | Outpatient (CLI) | payer BC ==
[2019-01-24 12:48] LABS: ALBUMIN/GLOBULIN RATIO 1.2 (1.0-2.2); ALKALINE PHOSPHATASE 39 IU/L (42-121); ALT ALANINE AMINOTRANSFERASE 22 IU/L (10-60); AST ASPARTATE AMINOTRANSFERASE 19 IU/L (10-42); BILIRUBIN,TOTAL 0.5 mg/dL (0.2-1.0); BUN - BLOOD UREA NITROGEN 27 mg/dL (6-20); CALCIUM 9.3 mg/dL (8.5-10.3); CARBON DIOXIDE - CO2 27 mmol/L (21-32); CHLORIDE 105 mmol/L (101-111); CHOL/HDL RATIO 4.4 (<5.0); CHOLESTEROL 135 mg/dL; CREATININE 1.2 mg/dL (0.6-1.2); GFR - MDRD 60 (>89); GLUCOSE 158 mg/dL (70-100); HDL CHOLESTEROL 31 mg/dL; LDL CHOLESTEROL,CALCULATED 81 mg/dL; LDL/HDL RATIO 2.6 (<3.6); SODIUM 139 mmol/L (135-145); TOTAL PROTEIN 7.4 g/dL (6.7-8.2); VLDL CHOLESTEROL 23 mg/dL
[2019-01-24 16:23] LABS: HB2 TOTAL 15.2 g/dL; HEMOGLOBIN A1C 0.85 g/dL; HEMOGLOBIN A1C % 7.3 % (4.6-6.2)
== END 2019-01-24 23:59 | disposition home or self-care (01) ==
LOC: LAB.WCP 07:52
PROVIDERS: ATTEND Physician Assistant Medical
DX: E11.9 Type 2 diabetes mellitus without complications (principal)
CPT/HCPCS: 36415; 80053; 80061; 83036; 83721

== ENCOUNTER 2019-02-26 14:43 | Outpatient (CLI) | payer BC ==
--- NOTE | 2019-02-26 15:03 | XRAY Report ---
Reason: RIGHT HIP PAIN Procedure Date: 02/26/2019 Accession Number: [id number] / [id number] Procedure: WCP - Hip 1 View RT CPT Code: FULL RESULT: EXAM: RIGHT HIP RADIOGRAPHY EXAM DATE: 02/26/2019 02:43 PM. CLINICAL HISTORY: Right hip pain. COMPARISON: None. TECHNIQUE: 2 views. FINDINGS: Bones: Normal. No fractures or bone lesion. Joints: Minimal joint space narrowing with marginal osteophytosis, osteoarthrosis of the hip joint similar to the left side. No subluxation. Soft Tissues: Normal. No soft tissue swelling. IMPRESSION: Mild osteoarthrosis. [facility]
== END 2019-02-26 23:59 | disposition home or self-care (01) ==
LOC: DI.WCP 14:43
PROVIDERS: ATTEND Physician Assistant
DX: M16.11 Unilateral primary osteoarthritis, right hip (principal)

== ENCOUNTER 2019-04-08 07:30 | Day surgery (SDC) | payer BC ==
[2019-04-08] MEDS ORDERED: PROPOFOL 200 MG/20 ML VIAL IVP ONE (07:31)
[2019-04-08] MEDS ORDERED: MIDAZOLAM 2 MG/2 ML VIAL IVP ONE (07:31)
[2019-04-08] MEDS ORDERED: LACTATED RINGERS 1,000 ML IV ONE (07:50)
--- NOTE | 2019-04-08 09:09 | ANESTHESIA ---
Pre-Anesthesia VS, & Labs - Diagnosis Hx of colon polyps - Procedure Colonnoscopy Vital Signs: Temp Pulse Resp BP Pulse Ox 36.7 C 77 16 147/72 H 96 04/08/19 07:51 04/08/19 07:51 04/08/19 07:51 04/08/19 07:51 04/08/19 07:51 Height 5 ft 7 in Weight (kg) 100.2 kg Body Mass Index 32.5 - NPO >8 hours, Other (Took prep this morning) - Lab Results Current Lab Results: Laboratory Tests 04/08/19 08:01: POC Whole Bld Glucose 147 H Lab results reviewed: No Home Medications and Allergies Cyanocobalamin (Vitamin B-12) [Vitamin B-12] 250 mcg PO DAILY 02/10/14 Fenofibrate 160 mg PO DAILY 02/10/14 Losartan [Cozaar] 50 mg PO DAILY 02/10/14 Metformin HCl 1,000 mg PO DAILY 02/10/14 [place]-3 Fatty Acids [[place]-3] 2,000 mg PO DAILY 02/10/14 Vit D3-Vit K/Berberine/Hops [Ostera Tablet] 1 tab ORAL DAILY 02/10/14 raNITIdine [Zantac] 150 mg ORAL DAILY 02/10/14 Atorvastatin Calcium 80 mg PO DAILY 09/12/18 Metoprolol Succinate 25 mg PO DAILY 09/12/18 Allergies/Adverse Reactions: Allergies Allergy/AdvReac Type Severity Reaction Status Date / Time Penicillins Allergy Edema Verified 10/31/18 15:29 diphenhydramine HCl * AdvReac Unknown Verified 10/31/18 15:29 [From Benadryl] lisinopril AdvReac Unknown Verified 10/31/18 15:29 prednisone AdvReac Unknown Verified 10/31/18 15:29 Anes History & Medical History - Anesthetic History Anesthesia Complications: reports: Other-see comment (Slow wakeup, hypoventilation) Family history of Anesthesia Complications: Denies Family history of Malignant Hyperthermia: Denies - Medical History Cardiovascular: reports: Hypertension, High cholesterol, HI, Other Pulmonary: reports: Sleep apnea, Other Gastrointestinal: reports: GERD, Colon polyps Urinary: reports: Benign prostate hypertrophy, Kidney stones Neuro: reports: None Musculoskeletal: reports: Chronic back pain, Other Endocrine/Autoimmune: reports: Type 2 diabetes Skin: reports: None Smoking Status: Never smoker Psychosocial: reports: No issues indicated - Surgical History General: Cholecystectomy, Appendectomy, Colonoscopy Eyes Ears Nose Throat (EENT): Tonsil/Adenoidectomy, Other Cardiothoracic: Coronary stent Exam General: Alert Dental: WNL, Dentures full Upper, Dentures full Lower Mouth Opening: Greater than 4 Fingerbreadths Neck Mobility: Normal Mallampati classification: II Thyromental Distance: greater than 6 cm Neurological: Normal speech Mental/Cognitive Status: Alert/Oriented X3 Plan Anesthesia Type: Total IV Consent for Procedure(s) Verified and Reviewed: Yes Code Status: Attempt Resuscitation ASA classification: 3-Severe systemic disease Is this case an emergency?: No
[2019-04-08 10:32] VITALS: BP 148/81
== END 2019-04-08 07:31 | disposition home or self-care (01) ==
LOC: SDS 07:30
PROVIDERS: ATTEND Internal Medicine Gastroenterology
PROC: 0DBN8ZZ Excision of Sigmoid Colon, Via Natural or Artificial Opening Endoscopic (ICD-10-PCS; 2019-04-08)
PROC: 0DBK8ZZ Excision of Ascending Colon, Via Natural or Artificial Opening Endoscopic (ICD-10-PCS; principal; 2019-04-08 08:30)
DX: Z12.11 Encounter for screening for malignant neoplasm of colon (principal); D12.2 Benign neoplasm of ascending colon; D12.5 Benign neoplasm of sigmoid colon; K57.30 Diverticulosis of large intestine without perforation or abscess without bleeding; G47.30 Sleep apnea, unspecified; K21.9 Gastro-esophageal reflux disease without esophagitis; I10 Essential (primary) hypertension; E11.9 Type 2 diabetes mellitus without complications; I25.10 Atherosclerotic heart disease of native coronary artery without angina pectoris; E66.9 Obesity, unspecified; I25.2 Old myocardial infarction; Z79.84 Long term (current) use of oral hypoglycemic drugs; Z95.5 Presence of coronary angioplasty implant and graft; Z79.899 Other long term (current) drug therapy; Z79.82 Long term (current) use of aspirin; Z68.32 Body mass index [BMI] 32.0-32.9, adult
CPT/HCPCS: 45380; J7120

== ENCOUNTER 2019-04-25 07:45 | Outpatient (CLI) | payer BC ==
[2019-04-25 13:19] LABS: CALCIUM 9.2 mg/dL (8.5-10.3); CREATININE 1.1 mg/dL (0.6-1.2)
[2019-04-25 13:49] LABS: HB2 TOTAL 13.9 g/dL; HEMOGLOBIN A1C 0.89 g/dL
== END 2019-04-25 23:59 | disposition home or self-care (01) ==
LOC: LAB.WCP 07:45
PROVIDERS: ATTEND Physician Assistant Medical
DX: E11.9 Type 2 diabetes mellitus without complications (principal)
CPT/HCPCS: 36415; 80048; 83036

== ENCOUNTER 2019-07-26 08:00 | Outpatient (CLI) | payer BC ==
[2019-07-26 13:04] LABS: ALBUMIN/GLOBULIN RATIO 1.3 (1.0-2.2); ALKALINE PHOSPHATASE 40 IU/L (42-121); ALT ALANINE AMINOTRANSFERASE 24 IU/L (10-60); AST ASPARTATE AMINOTRANSFERASE 22 IU/L (10-42); BILIRUBIN,TOTAL 0.5 mg/dL (0.2-1.0); BUN - BLOOD UREA NITROGEN 23 mg/dL (6-20); CALCIUM 9.2 mg/dL (8.5-10.3); CARBON DIOXIDE - CO2 26 mmol/L (21-32); CHLORIDE 108 mmol/L (101-111); CHOL/HDL RATIO 4.6 (<5.0); CHOLESTEROL 133 mg/dL; CREATININE 1.2 mg/dL (0.6-1.2); GLUCOSE 168 mg/dL (70-100); HDL CHOLESTEROL 29 mg/dL; LDL CHOLESTEROL,CALCULATED 79 mg/dL; LDL/HDL RATIO 2.7 (<3.6); SODIUM 140 mmol/L (135-145); TOTAL PROTEIN 7.2 g/dL (6.7-8.2); VLDL CHOLESTEROL 25 mg/dL
[2019-07-26 13:17] LABS: HB2 TOTAL 15.3 g/dL; HEMOGLOBIN A1C 0.98 g/dL
== END 2019-07-26 23:59 | disposition home or self-care (01) ==
LOC: LAB.WCP 08:00
PROVIDERS: ATTEND Physician Assistant Medical
DX: E11.9 Type 2 diabetes mellitus without complications (principal)
CPT/HCPCS: 36415; 80053; 80061; 83036; 83721

== ENCOUNTER 2019-08-10 18:09 | Emergency (ER) | payer BC, MEDICARE ==
[2019-08-10 18:19] VITALS: BP 145/77
--- NOTE | 2019-08-10 18:34 | ED Physician Documentation ---
History of Present Illness - Stated complaint Stated Complaint: RT SIDE PX/GLF - Chief complaint Chief Complaint: Trauma Ext - History obtained from History obtained from: Patient - History of Present Illness Timing: Today Pain level max: 9 Pain level now: 0 - Additonal information Additional information: 74-year-old male states that he was pulling down a branch out of a tree when it came loose, he fell backwards and landed on the right hip. This happened 2 to 3 hours prior to arrival. Worse with movement and better with rest. He has been using a cane to ambulate at home. No head, neck, back pain. No other injuries. He is not on blood thinners. Review of Systems Constitutional: denies: Fever, Chills Respiratory: denies: Cough GI: denies: Nausea, Vomiting, Diarrhea Skin: denies: Rash Musculoskeletal: denies: Neck pain, Back pain Neurologic: denies: Headache, Head injury, LOC PD PAST MEDICAL HISTORY - Past Medical History Cardiovascular: Hypertension, High cholesterol, [place], Other Respiratory: Sleep apnea, Other Neuro: None Endocrine/Autoimmune: Type 2 diabetes GI: GERD, Colon polyps : Benign prostate hypertrophy, Kidney stones HEENT: Chronic hearing loss, Other Psych: Anxiety Musculoskeletal: Chronic back pain, Other Derm: None - Past Surgical History Past Surgical History: Yes General: Cholecystectomy, Appendectomy, Colonoscopy Cardiovascular: Coronary stent HEENT: Tonsil/Adenoidectomy, Other - Present Medications Home Medications: Ambulatory Orders Medication Instructions Recorded Confirmed Cyanocobalamin (Vitamin B-12) 250 mcg PO DAILY 02/10/14 09/12/18 [Vitamin B-12] Fenofibrate 160 mg PO DAILY 02/10/14 10/31/18 Losartan [Cozaar] 50 mg PO DAILY 02/10/14 09/12/18 Metformin HCl 1,000 mg PO DAILY 02/10/14 09/12/18 [place]-3 Fatty Acids [[place]-3] 2,000 mg PO DAILY 02/10/14 09/12/18 Vit D3-Vit K/Berberine/Hops 1 tab ORAL DAILY 02/10/14 09/12/18 [Ostera Tablet] raNITIdine [Zantac] 150 mg ORAL DAILY 02/10/14 10/31/18 Atorvastatin Calcium 80 mg PO DAILY 09/12/18 09/12/18 Metoprolol Succinate 25 mg PO DAILY 09/12/18 09/12/18 - Allergies Allergies/Adverse Reactions: Allergies Allergy/AdvReac Type Severity Reaction Status Date / Time Penicillins Allergy Edema Verified 08/10/19 18:13 diphenhydramine HCl * AdvReac Unknown Verified 08/10/19 18:13 [From Benadryl] lisinopril AdvReac Unknown Verified 08/10/19 18:13 prednisone AdvReac Unknown Verified 08/10/19 18:13 - Social History Does the pt smoke?: No Smoking Status: Never smoker Does the pt drink ETOH?: No - Immunizations Immunizations are current?: Yes PD ED PE NORMAL - Vitals Vital signs reviewed: Yes - General General: Alert and oriented X 3, No acute distress, Well developed/nourished - HEENT HEENT: Atraumatic, PERRL, Moist mucous membranes - Neck Neck: Supple, no meningeal sign, No bony TTP - Cardiac Cardiac: RRR, Strong equal pulses - Respiratory Respiratory: No respiratory distress, Clear bilaterally - Abdomen Abdomen: Soft, Non tender, Non distended - Back Back: No spinal TTP - Derm Derm: Warm and dry, No rash - Extremities Extremities: Other (Tender to palpation over the greater trochanter of the right hip. Minimal pain with internal and external rotation. Mild discomfort with passive range of motion. Increased discomfort with active range of motion. Neurovascular intact. No shortening.) - Neuro Neuro: Alert and oriented X 3 - Psych Psych: Normal mood, Normal affect Results - Vitals Vitals: Vital Signs - 24 hr 08/10/19 18:13 Temperature 36.6 C Heart Rate 86 Respiratory 16 Rate Blood Pressure 145/77 H O2 Saturation 97 Oxygen O2 Source Room air - Rads (name of study) Right hip x-ray Radiology: Prelim report reviewed, EMP read contemporaneously, See rad report (normal) r hip Ct Radiology: Prelim report reviewed, EMP read contemporaneously, See rad report (no fractures) PD MEDICAL DECISION MAKING - ED course Complexity details: reviewed results, re-evaluated patient, considered differential, d/w patient ED course: 74-year-old male with right hip pain after a fall. Negative x-ray, he states that he cannot bear weight however, therefore a CT was performed. MRI is unavailable. He declines any pain medication here or for home. He is able to ambulate with a walker in the emergency department. Negative CT. He still declines pain medication. He will follow-up with his doctor for further care. Normal neuro exam. No back pain. Patient counseled regarding signs and symptoms for which I believe and urgent re-evaluation would be necessary. Patient with good understanding of and agreement to plan and is comfortable going home at this time This document was made in part using voice recognition software. While efforts are made to proofread this document, sound alike and grammatical errors may occur. Departure - Departure Disposition: 01 Home, Self Care Clinical Impression: Contusion of hip, right Qualifiers: Encounter type: initial encounter Qualified Code(s): S70.01XA - Contusion of right hip, initial encounter Condition: Good Instructions: ED Contusion Hip Follow-Up: Radha Queen PA-C [Primary Care Provider] - Within 1 week Comments: Return if you worsen. Your x-ray and CT scan are normal tonight. Follow-up w ith your doctor in 1 week for repeat evaluation. Use the walker to help you at home. Discharge Date/Time: 08/10/19 21:14
--- NOTE | 2019-08-10 19:18 | XRAY Report ---
Reason: fall, R hip pain Procedure Date: 08/10/2019 Accession Number: [id number] / [id number] Procedure: XR - Hip w/Pelvis 2-3V RT CPT Code: Final Report FULL RESULT: EXAM: RIGHT HIP RADIOGRAPHY EXAM DATE: 08/10/2019 06:47 PM. CLINICAL HISTORY: Fall, R hip pain. COMPARISON: HIP 1 VIEW RT 02/26/2019 2:18 PM. TECHNIQUE: 2 views. FINDINGS: Bones: Normal. No fractures or bone lesion. Joints: Normal. No dislocation. The hip joint space is preserved. Soft Tissues: Normal. No soft tissue swelling. IMPRESSION: No fracture or subluxation. RADIA
--- NOTE | 2019-08-10 20:41 | CT Report ---
Reason: fall, R hip pain, neg xray Procedure Date: 08/10/2019 Accession Number: [id number] / [id number] Procedure: CT - LOWER EXTREMITY WO - RT CPT Code: Final Report FULL RESULT: EXAM: RIGHT HIP CT WITHOUT CONTRAST EXAM DATE: 08/10/2019 07:43 PM. CLINICAL HISTORY: Fall, R hip pain, neg x-ray. COMPARISON: HIP W/PELVIS 2-3V RT 08/10/2019 6:25 PM. TECHNIQUE: Thin-section axial images were acquired of the hip without contrast. Post-processing: Coronal and sagittal reformats. Other: None. In accordance with CT protocol optimization, one or more of the following dose reduction techniques were utilized for this exam: automated exposure control, adjustment of mA and/or KV based on patient size, or use of iterative reconstructive technique. FINDINGS: Bones: No fracture or bone lesion. Joints: There are small acetabular and femoral head osteophytes consistent with mild osteoarthritis. Musculature: Normal. No fatty atrophy. Other: The visualized intraperitoneal structures are unremarkable. IMPRESSION: 1. No acute fracture. Mild right hip osteoarthritis. RADIA
== END 2019-08-10 21:14 | disposition home or self-care (01) ==
LOC: ED 18:09
DX: S70.01XA Contusion of right hip, initial encounter (principal); W18.30XA Fall on same level, unspecified, initial encounter; Y93.H2 Activity, gardening and landscaping; Y92.9 Unspecified place or not applicable; I10 Essential (primary) hypertension; E78.00 Pure hypercholesterolemia, unspecified; G47.30 Sleep apnea, unspecified; E11.9 Type 2 diabetes mellitus without complications; K21.9 Gastro-esophageal reflux disease without esophagitis; N40.0 Benign prostatic hyperplasia without lower urinary tract symptoms; G89.29 Other chronic pain; M54.9 Dorsalgia, unspecified; I25.2 Old myocardial infarction; H91.90 Unspecified hearing loss, unspecified ear; Z95.5 Presence of coronary angioplasty implant and graft; Z79.84 Long term (current) use of oral hypoglycemic drugs
CPT/HCPCS: 99284

== ENCOUNTER 2020-01-30 09:50 | Outpatient (CLI) | payer BC ==
[2020-01-30 12:08] LABS: ALBUMIN/GLOBULIN RATIO 1.1 (1.0-2.2); ALKALINE PHOSPHATASE 49 IU/L (42-121); ALT ALANINE AMINOTRANSFERASE 25 IU/L (10-60); AST ASPARTATE AMINOTRANSFERASE 21 IU/L (10-42); BILIRUBIN,TOTAL 0.8 mg/dL (0.2-1.0); BUN - BLOOD UREA NITROGEN 22 mg/dL (6-20); CALCIUM 9.3 mg/dL (8.5-10.3); CARBON DIOXIDE - CO2 25 mmol/L (21-32); CHLORIDE 108 mmol/L (101-111); CHOL/HDL RATIO 4.1 (<5.0); CHOLESTEROL 126 mg/dL; CREATININE 1.2 mg/dL (0.6-1.2); GLUCOSE 209 mg/dL (70-100); HDL CHOLESTEROL 31 mg/dL; LDL CHOLESTEROL,CALCULATED 73 mg/dL; LDL/HDL RATIO 2.4 (<3.6); SODIUM 141 mmol/L (135-145); TOTAL PROTEIN 7.7 g/dL (6.7-8.2); VLDL CHOLESTEROL 22 mg/dL
[2020-01-30 12:11] LABS: HEMOGLOBIN A1c% 7.8 % (4.27-6.07)
== END 2020-01-30 23:59 | disposition home or self-care (01) ==
LOC: LAB.WCP 09:50
PROVIDERS: ATTEND Physician Assistant Medical
DX: E11.9 Type 2 diabetes mellitus without complications (principal)
CPT/HCPCS: 36415; 80053; 80061; 83036; 83721

== ENCOUNTER 2020-01-30 12:24 | Outpatient (CLI) | payer BC ==
--- NOTE | 2020-01-30 14:20 | XRAY Report ---
PROCEDURE: Lumbar Spine Complete INDICATIONS: LUMBAR RADICULOPATHY,RIGHT TECHNIQUE: 4 views of the lumbar spine were acquired. COMPARISON: None. FINDINGS: Bones: 5 axa-[id number] vertebrae are present. There is normal bony alignment. No vertebral body compression fractures. No suspicious bony lesions. No pars interarticularis defects. Soft tissues: Overlying bowel gas pattern is normal. No suspicious soft tissue calcifications. IMPRESSION: 1. No spondylolysis or spondylolisthesis. Reviewed by: Yolette Hendrickson MD on 01/30/2020 2:19 PM PDT Approved by: Yolette Hendrickson MD on 01/30/2020 2:19 PM PDT Station ID: [id number]
== END 2020-01-30 12:25 | disposition home or self-care (01) ==
LOC: DI 12:24
PROVIDERS: ATTEND Physician Assistant Medical
DX: M54.16 Radiculopathy, lumbar region (principal); E11.9 Type 2 diabetes mellitus without complications
CPT/HCPCS: 36415; 72110; 80053; 80061; 83036; 83721

== ENCOUNTER 2020-02-03 08:00 | Outpatient (CLI) | payer MEDICARE, BC ==
[2020-02-04 14:47] LABS: CREATININE,URINE 157.1 mg/dL
[2020-02-04 14:48] LABS: MICROALBUM/CREATININE RATIO,UR 14.6 ug/mg (<30.0); MICROALBUMIN,URINE 2.3 mg/dL (0-300.0)
== END 2020-02-03 23:59 | disposition home or self-care (01) ==
LOC: LAB.R 08:00
PROVIDERS: ATTEND Physician Assistant Medical
DX: E11.9 Type 2 diabetes mellitus without complications (principal)
CPT/HCPCS: 82043; 82570

== ENCOUNTER 2020-05-04 08:00 | Outpatient (CLI) | payer MEDICARE, BC ==
[2020-05-04 18:12] LABS: CALCIUM 9.5 mg/dL (8.5-10.3); CREATININE 1.1 mg/dL (0.6-1.2)
[2020-05-04 22:27] LABS: HEMOGLOBIN A1c% 8.9 % (4.27-6.07)
== END 2020-05-06 23:59 | disposition home or self-care (01) ==
LOC: LAB.WCP 08:00
PROVIDERS: ATTEND Physician Assistant Medical
DX: E11.9 Type 2 diabetes mellitus without complications (principal)
CPT/HCPCS: 36415; 80048; 83036

== ENCOUNTER 2020-08-03 08:00 | Outpatient (CLI) | payer BC ==
[2020-08-03 12:36] LABS: ALBUMIN/GLOBULIN RATIO 1.2 (1.0-2.2); ALKALINE PHOSPHATASE 40 IU/L (42-121); ALT ALANINE AMINOTRANSFERASE 28 IU/L (10-60); AST ASPARTATE AMINOTRANSFERASE 22 IU/L (10-42); BILIRUBIN,TOTAL 0.5 mg/dL (0.2-1.0); BUN - BLOOD UREA NITROGEN 21 mg/dL (6-20); CALCIUM 9.7 mg/dL (8.5-10.3); CARBON DIOXIDE - CO2 26 mmol/L (21-32); CHLORIDE 107 mmol/L (101-111); CHOL/HDL RATIO 4.6 (<5.0); CHOLESTEROL 128 mg/dL; CREATININE 1.3 mg/dL (0.6-1.2); GFR - MDRD 54 (>89); GLUCOSE 150 mg/dL (70-100); HDL CHOLESTEROL 28 mg/dL; LDL CHOLESTEROL,CALCULATED 74 mg/dL; LDL/HDL RATIO 2.6 (<3.6); POTASSIUM 4.2 mmol/L (3.5-5.0); SODIUM 141 mmol/L (135-145); TOTAL PROTEIN 7.3 g/dL (6.7-8.2); TRIGLYCERIDES 132 mg/dL; VLDL CHOLESTEROL 26 mg/dL
[2020-08-03 12:56] LABS: ESTIMATED AVERAGE GLUCOSE 166 mg/dL (70-100); HEMOGLOBIN A1c% 7.4 % (4.27-6.07)
== END 2020-08-03 23:59 | disposition home or self-care (01) ==
LOC: LAB.WCP 08:00
PROVIDERS: ATTEND Physician Assistant Medical
DX: E11.9 Type 2 diabetes mellitus without complications (principal)
CPT/HCPCS: 36415; 80053; 80061; 83036; 83721

== ENCOUNTER 2020-10-29 08:00 | Outpatient (CLI) | payer BC ==
[2020-10-29 12:37] LABS: CALCIUM 9.1 mg/dL (8.5-10.3); CREATININE 1.3 mg/dL (0.6-1.2); POTASSIUM 4.6 mmol/L (3.5-5.0)
[2020-10-29 12:48] LABS: ESTIMATED AVERAGE GLUCOSE 166 mg/dL (70-100); HEMOGLOBIN A1c% 7.4 % (4.27-6.07)
== END 2020-10-29 23:59 | disposition home or self-care (01) ==
LOC: LAB.WCP 08:00
PROVIDERS: ATTEND Physician Assistant Medical
DX: E11.9 Type 2 diabetes mellitus without complications (principal)
CPT/HCPCS: 36415; 80048; 83036

== ENCOUNTER 2021-02-02 08:00 | Outpatient (CLI) | payer BC ==
[2021-02-02 18:40] LABS: ALBUMIN 3.8 g/dL (3.2-5.5); ALKALINE PHOSPHATASE 46 IU/L (42-121); ALT ALANINE AMINOTRANSFERASE 40 IU/L (10-60); AST ASPARTATE AMINOTRANSFERASE 31 IU/L (10-42); BILIRUBIN,TOTAL 0.6 mg/dL (0.2-1.0); BUN - BLOOD UREA NITROGEN 24 mg/dL (6-20); CALCIUM 9.3 mg/dL (8.5-10.3); CARBON DIOXIDE - CO2 26 mmol/L (21-32); CHLORIDE 105 mmol/L (101-111); CHOL/HDL RATIO 4.4 (<5.0); CHOLESTEROL 127 mg/dL; CREATININE 1.3 mg/dL (0.6-1.2); GFR - MDRD 54 (>89); GLUCOSE 166 mg/dL (70-100); HDL CHOLESTEROL 29 mg/dL; LDL CHOLESTEROL,CALCULATED 69 mg/dL; LDL/HDL RATIO 2.4 (<3.6); POTASSIUM 4.4 mmol/L (3.5-5.0); SODIUM 141 mmol/L (135-145); TOTAL PROTEIN 7.5 g/dL (6.7-8.2); TRIGLYCERIDES 143 mg/dL; VLDL CHOLESTEROL 29 mg/dL
[2021-02-02 18:48] LABS: CREATININE,URINE 318.9 mg/dL; MICROALBUM/CREATININE RATIO,UR 4.7 ug/mg (<30.0); MICROALBUMIN,URINE 1.5 mg/dL (0-300.0)
[2021-02-02 20:45] LABS: ESTIMATED AVERAGE GLUCOSE 192 mg/dL (70-100); HEMOGLOBIN A1c% 8.3 % (4.27-6.07)
== END 2021-02-02 23:59 | disposition home or self-care (01) ==
LOC: LAB.WCP 08:00
PROVIDERS: ATTEND Physician Assistant Medical
DX: E11.9 Type 2 diabetes mellitus without complications (principal); I10 Essential (primary) hypertension
CPT/HCPCS: 36415; 80053; 80061; 82043; 82570; 83036; 83721

== ENCOUNTER 2021-06-07 08:00 | Outpatient (CLI) | payer BC ==
[2021-06-07 12:12] LABS: CALCIUM 9.2 mg/dL (8.5-10.3); CREATININE 1.3 mg/dL (0.6-1.2); POTASSIUM 4.4 mmol/L (3.5-5.0)
[2021-06-07 15:13] LABS: ESTIMATED AVERAGE GLUCOSE 186 mg/dL (70-100); HEMOGLOBIN A1c% 8.1 % (4.27-6.07)
== END 2021-06-07 23:59 | disposition home or self-care (01) ==
LOC: LAB.WCP 08:00
PROVIDERS: ATTEND Physician Assistant Medical
DX: E11.9 Type 2 diabetes mellitus without complications (principal)
CPT/HCPCS: 36415; 80048; 83036

== ENCOUNTER 2021-06-29 11:21 | Outpatient (CLI) | payer BC ==
--- NOTE | 2021-06-29 17:42 | XRAY Report ---
PROCEDURE: Lumbar Spine 2 View INDICATIONS: LUMBAR RADICULOPATHY, RIGHT SIDE TECHNIQUE: 3 views of the lumbar spine were acquired. COMPARISON: None. FINDINGS: Bones: Transitional anatomy with 6 lumbar-type nonrib-bearing vertebral bodies and nonrudimentary S1 -S2 disc. For purposes of this dictation the 6 lumbar-type nonrib-bearing vertebral bodies will be de signated L1-S1 and less nonrudimentary disc is again S1-S2. There is normal bony alignment. No verte bral body compression fractures. No suspicious bony lesions. Mild degenerative changes noted through out the lumbar spine. Moderate L5-S1 and S2-S2 facet hypertrophy. Mild L3-L4 and L4-5 facet hypertrop hy. Soft tissues: Overlying bowel gas pattern is normal. No suspicious soft tissue calcifications. IMPRESSION: 1. Transitional anatomy with 6 lumbar type nonrib-bearing vertebral bodies and nonrudimentary S1-S2 d isc. 2. Multilevel degenerative disc disease. 3. Multilevel facet arthropathy. 4. No fracture. No acute osseous lesion. If there is continued clinical concern for pathology, then M RI should be considered for further evaluation. Reviewed by: Connie Vicente MD, PhD on 06/29/2021 5:41 PM PST Approved by: Connie Vicente MD, PhD on 06/29/2021 5:41 PM PST Station ID: [id number]
== END 2021-06-29 23:59 | disposition home or self-care (01) ==
LOC: DI.N 11:21
PROVIDERS: ATTEND Physician Assistant Medical
DX: M51.16 Intervertebral disc disorders with radiculopathy, lumbar region (principal)

== ENCOUNTER 2021-08-07 10:00 | Outpatient (CLI) | payer BC | END 2021-08-07 23:59 | disposition home or self-care (01) | LOC: LAB.N 10:00 | PROVIDERS: ATTEND Physician Assistant | DX: S90.422A Blister (nonthermal), left great toe, initial encounter (principal) | CPT/HCPCS: 87070; 87205 ==

== ENCOUNTER 2021-09-04 09:12 | Outpatient (CLI) | payer BC ==
[2021-09-04 14:10] LABS: ESTIMATED AVERAGE GLUCOSE 183 mg/dL (70-100)
[2021-09-04 14:24] LABS: ALBUMIN 3.9 g/dL (3.2-5.5); ALBUMIN/GLOBULIN RATIO 1.1 (1.0-2.2); ALKALINE PHOSPHATASE 37 IU/L (42-121); ALT ALANINE AMINOTRANSFERASE 18 IU/L (10-60); AST ASPARTATE AMINOTRANSFERASE 18 IU/L (10-42); BILIRUBIN,TOTAL 0.7 mg/dL (0.2-1.0); BUN - BLOOD UREA NITROGEN 29 mg/dL (6-20); CALCIUM 9.4 mg/dL (8.5-10.3); CARBON DIOXIDE - CO2 26 mmol/L (21-32); CHLORIDE 105 mmol/L (101-111); CHOLESTEROL 136 mg/dL; CREATININE 1.2 mg/dL (0.6-1.2); GFR - MDRD 59 (>89); GLUCOSE 181 mg/dL (70-100); HDL CHOLESTEROL 27 mg/dL; LDL CHOLESTEROL,CALCULATED 81 mg/dL; POTASSIUM 4.8 mmol/L (3.5-5.0); SODIUM 139 mmol/L (135-145); TOTAL PROTEIN 7.4 g/dL (6.7-8.2); TRIGLYCERIDES 141 mg/dL; VLDL CHOLESTEROL 28 mg/dL
== END 2021-09-04 09:13 | disposition home or self-care (01) ==
LOC: LAB.N 09:12
PROVIDERS: ATTEND Physician Assistant Medical
DX: E11.9 Type 2 diabetes mellitus without complications (principal)
CPT/HCPCS: 36415; 80053; 80061; 83036; 83721

== ENCOUNTER 2021-12-04 09:27 | Outpatient (CLI) | payer BC ==
[2021-12-04 19:06] LABS: CALCIUM 9.2 mg/dL (8.5-10.3); CREATININE 1.3 mg/dL (0.6-1.2); POTASSIUM 4.5 mmol/L (3.5-5.0)
[2021-12-04 20:42] LABS: ESTIMATED AVERAGE GLUCOSE 183 mg/dL (70-100)
== END 2021-12-04 09:28 | disposition home or self-care (01) ==
LOC: LAB.N 09:27
PROVIDERS: ATTEND Physician Assistant
DX: E11.9 Type 2 diabetes mellitus without complications (principal); Z12.5 Encounter for screening for malignant neoplasm of prostate
CPT/HCPCS: 36415; 80048; 83036; 84153

== ENCOUNTER 2022-03-28 07:10 | Outpatient (CLI) | payer BC ==
[2022-03-28 12:46] LABS: ALBUMIN 3.7 g/dL (3.2-5.5); ALBUMIN/GLOBULIN RATIO 1.1 (1.0-2.2); ALKALINE PHOSPHATASE 45 IU/L (42-121); ALT ALANINE AMINOTRANSFERASE 15 IU/L (10-60); AST ASPARTATE AMINOTRANSFERASE 16 IU/L (10-42); BILIRUBIN,TOTAL 0.4 mg/dL (0.2-1.0); BUN - BLOOD UREA NITROGEN 24 mg/dL (6-20); CALCIUM 9.3 mg/dL (8.5-10.3); CARBON DIOXIDE - CO2 26 mmol/L (21-32); CHLORIDE 106 mmol/L (101-111); CHOL/HDL RATIO 5.3 (<5.0); CHOLESTEROL 155 mg/dL; CREATININE 1.1 mg/dL (0.6-1.2); GFR - MDRD 65 (>89); GLUCOSE 178 mg/dL (70-100); HDL CHOLESTEROL 29 mg/dL; LDL CHOLESTEROL,CALCULATED 88 mg/dL; POTASSIUM 4.5 mmol/L (3.5-5.0); SODIUM 138 mmol/L (135-145); TOTAL PROTEIN 7.2 g/dL (6.7-8.2); TRIGLYCERIDES 191 mg/dL; VLDL CHOLESTEROL 38 mg/dL
[2022-03-28 14:08] LABS: ESTIMATED AVERAGE GLUCOSE 180 mg/dL (70-100); HEMOGLOBIN A1c% 7.9 % (4.27-6.07)
== END 2022-03-28 07:11 | disposition home or self-care (01) ==
LOC: LAB.N 07:10
PROVIDERS: ATTEND Physician Assistant Medical
DX: E11.9 Type 2 diabetes mellitus without complications (principal)
CPT/HCPCS: 36415; 80053; 80061; 83036; 83721

== ENCOUNTER 2022-04-23 08:00 | Outpatient (CLI) | payer BC ==
[2022-04-23 18:39] LABS: BASOPHILS % (AUTO) 0.4 %; EOSINOPHILS # (AUTO) 0.1 10^3/uL (0.0-0.7); EOSINOPHILS % (AUTO) 2.4 %; HCT - HEMATOCRIT 37.5 % (42.0-52.0); HGB - HEMOGLOBIN 11.2 g/dL (14.0-18.0); LYMPHOCYTES # (AUTO) 1.1 10^3/uL (1.5-3.5); LYMPHOCYTES % (AUTO) 20.3 %; MEAN CORPUSCULAR HEMOGLOBIN 25.6 pg (27.0-31.0); MEAN CORPUSCULAR HGB CONC 29.9 g/dL (32.0-36.0); MEAN CORPUSCULAR VOLUME 85.8 fL (80.0-94.0); MEAN PLATELET VOLUME 10.6 fL (7.4-11.4); MONOCYTES # (AUTO) 0.7 10^3/uL (0.0-1.0); NEUTROPHILS # (AUTO) 3.5 10^3/uL (1.5-6.6); NEUTROPHILS % (AUTO) 64.7 %; PLT - PLATELET COUNT 259 10^3/uL (130-450); RED BLOOD COUNT 4.37 10^6/uL (4.70-6.10); RED CELL DISTRIBUTION WIDTH 14.8 % (12.0-15.0); WHITE BLOOD COUNT 5.4 x10^3/uL (4.8-10.8)
[2022-04-23 18:49] LABS: ALBUMIN 3.6 g/dL (3.2-5.5); ALBUMIN/GLOBULIN RATIO 1.1 (1.0-2.2); BILIRUBIN,TOTAL 0.4 mg/dL (0.2-1.0); CALCIUM 8.9 mg/dL (8.5-10.3); POTASSIUM 4.4 mmol/L (3.5-5.0); TOTAL PROTEIN 6.8 g/dL (6.7-8.2)
== END 2022-04-23 23:59 | disposition home or self-care (01) ==
LOC: LAB.N 08:00
PROVIDERS: ATTEND Nurse Practitioner
DX: M54.2 Cervicalgia (principal)
CPT/HCPCS: 36415; 80053; 84443; 85025

== ENCOUNTER 2022-04-26 12:06 | Outpatient (CLI) | payer BC ==
--- NOTE | 2022-04-26 22:13 | XRAY Report ---
PROCEDURE: Cervical Spine 2 View INDICATIONS: NECK PAIN TECHNIQUE: 3 view(s) of the cervical spine were acquired. COMPARISON: None. FINDINGS: Bones: No fractures or dislocations to the C6-C7 level. The lateral masses of C1 appear intact on t he odontoid view. No suspicious bony lesions. Mild-moderate multilevel degenerative changes of the c ervical spine with disc height loss and facet degenerative changes present. 2 mm anterolisthesis of C 5 on C6. Soft tissues: No prevertebral soft tissue swelling. IMPRESSION: Mild-moderate multilevel degenerative changes of the cervical spine. If symptoms persist , follow-up radiographs and/or CT or MRI may be helpful for further evaluation. Reviewed by: Saurabh Neil MD on 04/26/2022 10:12 PM [facility] [[email or web address]] Approved by: Saurabh Neil MD on 04/26/2022 10:12 PM [facility] [[email or web address]] Station ID: [id number]
== END 2022-04-26 12:07 | disposition home or self-care (01) ==
LOC: DI 12:06
PROVIDERS: ATTEND Nurse Practitioner
DX: M47.812 Spondylosis without myelopathy or radiculopathy, cervical region (principal)

== ENCOUNTER 2022-05-10 14:30 | Outpatient (CLI) | payer BC | END 2022-05-10 23:59 | disposition short-term general hospital (02) | LOC: EMS 14:30 | DX: M79.622 Pain in left upper arm (principal); X50.0XXA Overexertion from strenuous movement or load, initial encounter; Y93.B9 Activity, other involving muscle strengthening exercises; Y92.39 Other specified sports and athletic area as the place of occurrence of the external cause | CPT/HCPCS: A0425; A0429 ==

== ENCOUNTER 2022-07-06 12:11 | Outpatient (CLI) | payer BC ==
--- NOTE | 2022-07-07 09:50 | XRAY Report ---
PROCEDURE: Shoulder 3 View LT INDICATIONS: SHOULDER IMPINGEMENT SYNDROME TECHNIQUE: 3 views of the shoulder were acquired. COMPARISON: None. FINDINGS: Bones: No acute fractures or dislocations. No suspicious bony lesions. Visualized ribs appear inta ct. At least moderate AC joint hypertrophy. Mild glenohumeral joint degenerative changes present. Soft tissues: No suspicious soft tissue calcifications. IMPRESSION: No acute fracture or dislocation identified. Degenerative changes of the acromioclavicul ar and glenohumeral joints are present. Reviewed by: Saurabh Neil MD on 07/07/2022 9:49 AM [facility] Approved by: Saurabh Neil MD on 07/07/2022 9:49 AM [facility] Station ID: [id number]
== END 2022-07-06 12:12 | disposition home or self-care (01) ==
LOC: DI 12:11
PROVIDERS: ATTEND Physician Assistant Medical
DX: M75.42 Impingement syndrome of left shoulder (principal); M19.012 Primary osteoarthritis, left shoulder

== ENCOUNTER 2022-07-30 12:04 | Outpatient (CLI) | payer BC ==
[2022-07-30 18:51] LABS: BASOPHILS % (AUTO) 0.3 %; EOSINOPHILS # (AUTO) 0.1 10^3/uL (0.0-0.7); EOSINOPHILS % (AUTO) 1.7 %; HCT - HEMATOCRIT 40.8 % (42.0-52.0); LYMPHOCYTES # (AUTO) 1.3 10^3/uL (1.5-3.5); LYMPHOCYTES % (AUTO) 18.9 %; MEAN CORPUSCULAR HEMOGLOBIN 25.1 pg (27.0-31.0); MEAN CORPUSCULAR HGB CONC 29.4 g/dL (32.0-36.0); MEAN CORPUSCULAR VOLUME 85.2 fL (80.0-94.0); MEAN PLATELET VOLUME 10.7 fL (7.4-11.4); MONOCYTES # (AUTO) 0.7 10^3/uL (0.0-1.0); MONOCYTES % (AUTO) 9.4 %; NEUTROPHILS # (AUTO) 4.9 10^3/uL (1.5-6.6); NEUTROPHILS % (AUTO) 69.4 %; PLT - PLATELET COUNT 297 10^3/uL (130-450); RED BLOOD COUNT 4.79 10^6/uL (4.70-6.10); RED CELL DISTRIBUTION WIDTH 15.3 % (12.0-15.0); WHITE BLOOD COUNT 7.1 x10^3/uL (4.8-10.8)
[2022-07-30 19:09] LABS: ALBUMIN 3.8 g/dL (3.2-5.5); ALBUMIN/GLOBULIN RATIO 1.1 (1.0-2.2); ALKALINE PHOSPHATASE 48 IU/L (42-121); ALT ALANINE AMINOTRANSFERASE 18 IU/L (10-60); AST ASPARTATE AMINOTRANSFERASE 17 IU/L (10-42); BILIRUBIN,TOTAL 0.7 mg/dL (0.2-1.0); BUN - BLOOD UREA NITROGEN 23 mg/dL (6-20); CARBON DIOXIDE - CO2 26 mmol/L (21-32); CHLORIDE 109 mmol/L (101-111); CHOL/HDL RATIO 4.2 (<5.0); CHOLESTEROL 127 mg/dL; CREATININE 1.2 mg/dL (0.6-1.2); GFR - MDRD 59 (>89); GLUCOSE 139 mg/dL (70-100); HDL CHOLESTEROL 30 mg/dL; LDL CHOLESTEROL,CALCULATED 77 mg/dL; LDL/HDL RATIO 2.6 (<3.6); POTASSIUM 4.6 mmol/L (3.5-5.0); SODIUM 139 mmol/L (135-145); TOTAL PROTEIN 7.3 g/dL (6.7-8.2); TRIGLYCERIDES 101 mg/dL; VLDL CHOLESTEROL 20 mg/dL
[2022-07-31 14:17] LABS: ESTIMATED AVERAGE GLUCOSE 163 mg/dL (70-100); HEMOGLOBIN A1c% 7.3 % (4.27-6.07)
== END 2022-07-30 12:05 | disposition home or self-care (01) ==
LOC: LAB.N 12:04
PROVIDERS: ATTEND Physician Assistant Medical
DX: E11.9 Type 2 diabetes mellitus without complications (principal); I10 Essential (primary) hypertension
CPT/HCPCS: 36415; 80053; 80061; 83036; 83721; 85025

== ENCOUNTER 2022-08-05 04:32 | Outpatient (CLI) | payer BC | END 2022-08-05 23:59 | disposition critical access hospital (66) | LOC: EMS 04:32 | DX: M25.551 Pain in right hip (principal); Z98.890 Other specified postprocedural states; Z96.641 Presence of right artificial hip joint | CPT/HCPCS: A0425; A0429 ==

== ENCOUNTER 2022-08-05 04:53 | Emergency (ER) | payer BC ==
--- NOTE | 2022-08-05 04:59 | ED Physician Documentation ---
History of Present Illness - Stated complaint Stated Complaint: PAIN S/P HIP SURGERY - History obtained from History obtained from: Patient, Family, EMS - Additonal information Additional information: Patient is brought in by ambulance. HPI is from patient, with contribution to HPI also from EMS as well as patient's . Patient was discharged from [facility] yesterday after undergoing right hip replacement. The patient tells me that at approximately 11 PM when he was at home, he found that he was having too much pain associated with that right hip surgical site to get out of bed to use the bathroom. He says his then gave him one of the prescription pain medications. He cannot tell me whether or not the pain medication seem to have the desired effect, and despite repeated questions, it is still not clear to me whether or not he was subsequently able to get adequate pain relief and/or get out of bed. Patient says that this occurred again approximately 1 hour prior to ED arrival this morning; that he was lying in bed and tried to get out of bed so was use the bathroom, but could not get out of bed due to the pain associated with the right hip and the surgical site. He does not recall whether or not his gave him pain medication on this episode, rather, he says that she then called 911. Patient's arrives later in patient's ED stay; her chief concern is that his pain is inadequately controlled; their understanding was that the pain control would be enough such that he would be able to get out of bed and ambulate to and from the bathroom at a minimum. Patient's says that she has had to provide significantly more assistance than she was expecting in regards to getting him up out of bed for toileting, describes having to pull him in different directions just to get him to the edge of the bed. She says that as a result, he has been relieving himself on the bed as well as the floor due to not being able to get all the way to the bathroom, which, in turn, is due to inadequate pain control regarding his right hip. Review of Systems : denies: Dysuria, Frequency Musculoskeletal: reports: Joint pain (right hip), Pain with weight bearing. denies: Neck pain, Back pain Neurologic: denies: Generalized weakness, Focal weakness, Numbness PD PAST MEDICAL HISTORY - Past Medical History Cardiovascular: Hypertension, High cholesterol, [place], Other Respiratory: Sleep apnea, Other Neuro: None Endocrine/Autoimmune: Type 2 diabetes GI: GERD, Colon polyps : Benign prostate hypertrophy, Kidney stones HEENT: Chronic hearing loss, Other Psych: Anxiety Musculoskeletal: Chronic back pain, Other Derm: None - Past Surgical History Past Surgical History: Yes General: Cholecystectomy, Appendectomy, Colonoscopy Cardiovascular: Coronary stent HEENT: Tonsil/Adenoidectomy, Other - Present Medications Home Medications: Ambulatory Orders Medication Instructions Recorded Confirmed Fenofibrate 160 mg PO DAILY 02/10/14 08/05/22 Losartan [Cozaar] 50 mg PO DAILY 02/10/14 08/05/22 Metformin HCl 1,000 mg PO HS 02/10/14 08/05/22 [place]-3 Fatty Acids [[place]-3] 2,000 mg PO DAILY 02/10/14 08/05/22 Vit D3-Vit K/Berberine/Hops 1 tab ORAL DAILY 02/10/14 08/05/22 [Ostera Tablet] Atorvastatin Calcium 80 mg PO DAILY 09/12/18 08/05/22 Metoprolol Succinate 50 mg PO DAILY 09/12/18 08/05/22 Celecoxib [Celebrex] 200 mg PO DAILY 08/05/22 08/05/22 Enoxaparin [Lovenox] 40 mg SUBQ Q24H 08/05/22 08/05/22 Gabapentin [Neurontin] 300 mg PO TID 08/05/22 08/05/22 Glimepiride [Amaryl] 2 mg PO DAILY 08/05/22 08/05/22 HYDROcod/ACETAM 5/325 [[place] 5/325] 1 - 2 tablet PO Q6H PRN 08/05/22 08/05/22 HYDROmorphone [Dilaudid] 2 mg PO Q6H 08/05/22 08/05/22 hydrOXYzine HCL [Hydroxyzine HCl] 25 mg PO TID PRN 08/05/22 08/05/22 - Allergies Allergies/Adverse Reactions: Allergies Allergy/AdvReac Type Severity Reaction Status Date / Time Penicillins Allergy Edema Verified 08/05/22 05:04 diphenhydramine HCl * AdvReac Unknown Verified 08/05/22 05:04 [From Benadryl] lisinopril AdvReac Unknown Verified 08/05/22 05:04 prednisone AdvReac Unknown Verified 08/05/22 05:04 - Social History Does the pt smoke?: No Smoking Status: Never smoker Does the pt drink ETOH?: No - Immunizations Immunizations are current?: Yes PD ED PE NORMAL - Vitals Vital signs reviewed: Yes - General General: Alert and oriented X 3, No acute distress, Well developed/nourished - Cardiac Cardiac: RRR, No murmur - Abdomen Abdomen: Soft, Non tender - Extremities Extremities: Other (right hip: lateral surgical site with dressing in place covered by tegaderm; this dressing is left in place. the gauze is clean, dry (no blood nor discharge noted)) Results - Vitals Vitals: Vital Signs - 24 hr 08/05/22 08/05/22 08/05/22 05:04 15:06 19:15 Temperature 37.4 C 36.4 C L Heart Rate 96 109 H 91 Respiratory 14 18 15 Rate Blood Pressure 130/65 147/80 H 144/60 H O2 Saturation 95 96 93 Oxygen O2 Source Room air PD Medical Decision Making - ED course Complexity details: reviewed old records (records from [facility] were requested, faxed to [facility] ED and reviewed by me. they inlude notes from PT which indicate WBAT, that he was able to transfer OOB independently, ambulated 100 feet usingFWW), considered differential, d/w patient, d/w family ED course: Patient's is concerned about the level of pain control, specifically that it seems the pain control regimen he has been prescribed for home does not adequately allow for him to stand and ambulate to the bathroom as he was able to with the physical therapist yesterday at [facility] prior to discharge home. Patient's is asking about placement in a subacute facility, but patient says he very much does not want to this. Complicating this situation is that there is no social sciences instructor available today at [facility]. After further discussion, it was agreed that patient will now get a dose of the hydromorphone which he was prescribed by [facility], and after this has had time to take effect, ED RN will reevaluate the patient and see if he is able to stand, bear weight as tolerated, and ambulate with a walker. The tells me that if this can be accomplished, she would be comfortable with taking the patient home. Care of patient turned over to oncoming ED physician (Dr. Bermudez) at end of my shift pending outcome of above course of action. Departure - Departure Clinical Impression: Status post right hip replacement Condition: Stable
--- OUTSIDE RECORDS SUMMARY | 2022-08-05 05:10 | EXTERNAL MEDICAL SUMMARY RPT | Continuity of Care Document ---
:1945 Author Organization [facility] Address [address] [place] [address] Phone Care Team Providers Name Role Phone Radha Queen Unavailable Unavailable Allergies and Intolerances date description facility type (no date) Mild [facility] (unknown) (no date) diphenhydramine [facility] (unknown) (no date) lisinopril [facility] (unknown) (no date) penicillin G [facility] (unknown) Encounters No information. Functional Status No information. Immunizations No information. Medications No information. Problems date description facility 2022-05-10 00:00 Pain of upper extremity [facility] 2022-05-12 23:52 Pain in left arm [facility] Procedures No information. Results/Labs test date author facility value unit interpret ation Result panel 1 (unknown) (no (unknown) (unknown) (no value) (units (unk nown) date) unknown) (unknown) (no (unknown) (unknown) <Electronically (units (unknown) date) signed by Orlando unknown) P.A-C Romulo> (unknown) (no (unknown) (unknown) (Fish Oil) (units (unk nown) date) unknown) (unknown) (no (unknown) (unknown) [id number] (units (unkno wn) date) unknown) (unknown) (no (unknown) (unknown) 1 cap PO QPM (units (u nknown) date) unknown) (unknown) (no (unknown) (unknown) 1,000 mg PO .qd (units (unknown) date) PRN unknown) (unknown) (no (unknown) (unknown) 1,000 mg PO QPM (units (unknown) date) unknown) (unknown) (no (unknown) (unknown) 1,000 unit PO (units ( unknown) date) DAILY unknown) (unknown) (no (unknown) (unknown) 1,200 mg (units (unkno wn) date) capsule,delayed unknown) release (unknown) (no (unknown) (unknown) 05/10/22 1840 (units ( unknown) date) unknown) (unknown) (no (unknown) (unknown) 05/10/22 (units (unkno wn) date) unknown) (unknown) (no (unknown) (unknown) 15:00 05/10/22 (units (unknown) date) unknown) (unknown) (no (unknown) (unknown) 160 mg PO DAILY (units (unknown) date) unknown) (unknown) (no (unknown) (unknown) 17:06 05/10/22 (units (unknown) date) unknown) (unknown) (no (unknown) (unknown) 18:01 (units (unkno wn) date) unknown) (unknown) (no (unknown) (unknown) 2 mg PO DAILY (units ( unknown) date) unknown) (unknown) (no (unknown) (unknown) 200 mg PO DAILY (units (unknown) date) Qty: 90 2RF unknown) (unknown) (no (unknown) (unknown) 50 mg PO DAILY (units (unknown) date) unknown) (unknown) (no (unknown) (unknown) 600 mg PO TID (units ( unknown) date) unknown) (unknown) (no (unknown) (unknown) 76-year-old male (units (unknown) date) with diabetes, unknown) distant myocardial infarction presents to the ED (unknown) (no (unknown) (unknown) 80 mg PO QPM (units (u nknown) date) unknown) (unknown) (no (unknown) (unknown) 81 mg PO DAILY (units (unknown) date) Qty: 0 unknown) (unknown) (no (unknown) (unknown) Activity (units (unkno wn) date) Restrictions/Additi unknown) onal Instructions: (unknown) (no (unknown) (unknown) Age/Sex: 76 / M (units (unknown) date) unknown) (unknown) (no (unknown) (unknown) Allergic/Immunolog (units (unknown) date) ic unknown) (unknown) (no (unknown) (unknown) Allergic/Immunolog (units (unknown) date) ic: Denies unknown) urticaria, Denies throat swelling and Denies (unknown) (no (unknown) (unknown) Allergies (units (unkn own) date) unknown) (unknown) (no (unknown) (unknown) Allergy/AdvReac (units (unknown) date) Type Severity unknown) Reaction Status Date / Time (unknown) (no (unknown) (unknown) Arm pain (units (unkno wn) date) unknown) (unknown) (no (unknown) (unknown) Auscultation:?yohan (units (unknown) date) r to auscultation unknown) bilaterally (unknown) (no (unknown) (unknown) Blood Pressure (units (unknown) date) 188/81 H 05/10/22 unknown) 15:00 (unknown) (no (unknown) (unknown) Blood Pressure (units (unknown) date) 188/81 H 182/86 H unknown) 173/78 H (unknown) (no (unknown) (unknown) Cardio (units (unkno wn) date) unknown) (unknown) (no (unknown) (unknown) Cardiovascular (units (unknown) date) unknown) (unknown) (no (unknown) (unknown) Cardiovascular: (units (unknown) date) Denies chest pain, unknown) Denies irregular heart rhythm, Denies (unknown) (no (unknown) (unknown) Cervical (units (unkno wn) date) spondylosis unknown) (unknown) (no (unknown) (unknown) Chief Complaint: (units (unknown) date) Extremity Injury, unknown) Upper (unknown) (no (unknown) (unknown) Clinical (units (unkno wn) date) Impression: unknown) (unknown) (no (unknown) (unknown) Comments: (units (unkn own) date) unknown) (unknown) (no (unknown) (unknown) Const (units (unkno wn) date) unknown) (unknown) (no (unknown) (unknown) Constitutional (units (unknown) date) unknown) (unknown) (no (unknown) (unknown) Constitutional: (units (unknown) date) Denies chills, unknown) Denies fatigue, Denies fever(s), Denies frequent (unknown) (no (unknown) (unknown) Course (units (unkno wn) date) unknown) (unknown) (no (unknown) (unknown) D3) (units (unkno wn) date) unknown) (unknown) (no (unknown) (unknown) 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), unknown) thoracic (unknown) (no (unknown) (unknown) : 1945 (units (unknown) date) Acct:[id number] unknown) (unknown) (no (unknown) (unknown) Date of Service: (units (unknown) date) 05/10/22 unknown) (unknown) (no (unknown) (unknown) 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 (unknown) (no (unknown) (unknown) Denies frequent (units (unknown) date) falls, Denies loss unknown) of vision, Denies numbness, Denies tingling (unknown) (no (unknown) (unknown) Denies loss of (units (unknown) date) vision unknown) (unknown) (no (unknown) (unknown) Denies numbness (units (unknown) date) and Denies tingling unknown) (unknown) (no (unknown) (unknown) Departure (units (unkn own) date) unknown) (unknown) (no (unknown) (unknown) Diabetes (units (unkno wn) date) unknown) (unknown) (no (unknown) (unknown) Discharge Plan (units (unknown) date) unknown) (unknown) (no (unknown) (unknown) ENT (units (unkno wn) date) unknown) (unknown) (no (unknown) (unknown) ER Physician: (units ( unknown) date) Romulo,Hyma P.A-C unknown) (unknown) (no (unknown) (unknown) Ears, Nose, Mouth, (units (unknown) date) and Throat: Denies unknown) change in voice, Denies dizziness, Denies (unknown) (no (unknown) (unknown) Ears:?hearing (units ( unknown) date) grossly normal unknown) bilaterally (unknown) (no (unknown) (unknown) Effort + (units (unkno wn) date) Inspection:?normal unknown) respiratory effort (unknown) (no (unknown) (unknown) Emergency Report (units (unknown) date) unknown) (unknown) (no (unknown) (unknown) Endocrine (units (unkn own) date) unknown) (unknown) (no (unknown) (unknown) Endocrine: Denies (units (unknown) date) fatigue, Denies unknown) flushing and Denies palpitations (unknown) (no (unknown) (unknown) Exam Narrative: (units (unknown) date) unknown) (unknown) (no (unknown) (unknown) Exam (units (unkno wn) date) unknown) (unknown) (no (unknown) (unknown) Eyes (units (unkno wn) date) unknown) (unknown) (no (unknown) (unknown) Eyes: Denies (units (u nknown) date) change in vision, unknown) Denies eye discharge, Denies irritation and (unknown) (no (unknown) (unknown) Face and (units (unkno wn) date) sinus:?normal unknown) facial exam and sinuses nontender (unknown) (no (unknown) (unknown) Facet arthropathy, (units (unknown) date) lumbar unknown) (unknown) (no (unknown) (unknown) Family History (units (unknown) date) (Reviewed 05/10/22 unknown) @ 18:39 by Orlando Sebastian PA-C) (unknown) (no (unknown) (unknown) Gastrointestinal (units (unknown) date) unknown) (unknown) (no (unknown) (unknown) Gastrointestinal: (units (unknown) date) Denies abdominal unknown) pain, Denies change in bowel habits, Denies (unknown) (no (unknown) (unknown) General (units (unkno wn) date) unknown) (unknown) (no (unknown) (unknown) General:?appearanc (units (unknown) date) e normal, both eyes unknown) and all related structures (unknown) (no (unknown) (unknown) General:?cooperati (units (unknown) date) ve, healthy unknown) appearing and comfortable (unknown) (no (unknown) (unknown) General:?patient (units (unknown) date) alert, patient unknown) awake and patient oriented x3 (unknown) (no (unknown) (unknown) Genitourinary (units ( unknown) date) unknown) (unknown) (no (unknown) (unknown) Genitourinary: (units (unknown) date) Denies hematuria, unknown) Denies flank pain, Denies urinary incontinence (unknown) (no (unknown) (unknown) HENMT (units (unkno wn) date) unknown) (unknown) (no (unknown) (unknown) HPI - Extremity (units (unknown) date) Injury (Upper) unknown) (unknown) (no (unknown) (unknown) HPI narrative: (units (unknown) date) unknown) (unknown) (no (unknown) (unknown) Head:?normal to (units (unknown) date) inspection unknown) (unknown) (no (unknown) (unknown) Hematologic/Lympha (units (unknown) date) tic unknown) (unknown) (no (unknown) (unknown) Hematologic/Lympha (units (unknown) date) tic: Denies easy unknown) bruising (unknown) (no (unknown) (unknown) Herniated nucleus (units (unknown) date) pulposus, L4-5 unknown) (unknown) (no (unknown) (unknown) High cholesterol (units (unknown) date) unknown) (unknown) (no (unknown) (unknown) History of Present (units (unknown) date) Illness unknown) (unknown) (no (unknown) (unknown) History of (units (unk nown) date) cataract removal unknown) with insertion of prosthetic lens (unknown) (no (unknown) (unknown) Home Medications (units (unknown) date) unknown) (unknown) (no (unknown) (unknown) Initial Vital (units ( unknown) date) Signs unknown) (unknown) (no (unknown) (unknown) Initial Vital (units ( unknown) date) Signs: unknown) (unknown) (no (unknown) (unknown) Instructions: DI (units (unknown) date) for Arm Pain unknown) (unknown) (no (unknown) (unknown) Integumentary/Kennedi (units (unknown) date) sts unknown) (unknown) (no (unknown) (unknown) [facility] (units (unknown) date) [address] [place] [address] Street unknown) [place] [address] (unknown) (no (unknown) (unknown) Label Comments: (units (unknown) date) unknown) (unknown) (no (unknown) (unknown) Left-sided upper (units (unknown) date) arm pain unknown) (unknown) (no (unknown) (unknown) Lumbar (units (unkno wn) date) radiculopathy unknown) (unknown) (no (unknown) (unknown) MDM - Extremity (units (unknown) date) Injury (Upper) unknown) (unknown) (no (unknown) (unknown) MDM Narrative (units ( unknown) date) unknown) (unknown) (no (unknown) (unknown) Medical History (units (unknown) date) (Reviewed 05/10/22 unknown) @ 18:39 by Orlando Sebastian PA-C) (unknown) (no (unknown) (unknown) Medical decision (units (unknown) date) making narrative: unknown) (unknown) (no (unknown) (unknown) Medication (units (unk nown) date) Instructions unknown) Recorded Confirmed (unknown) (no (unknown) (unknown) Medication (units (unk nown) date) Instructions unknown) Recorded (unknown) (no (unknown) (unknown) Mode of arrival: (units (unknown) date) EMS unknown) (unknown) (no (unknown) (unknown) Morbid obesity due (units (unknown) date) to excess calories unknown) (unknown) (no (unknown) (unknown) Mouth:?oral (units (un known) date) mucosae normal unknown) (unknown) (no (unknown) (unknown) Musculoskeletal (units (unknown) date) unknown) (unknown) (no (unknown) (unknown) Musculoskeletal: (units (unknown) date) Denies back pain, unknown) Denies muscle weakness, Denies neck pain, (unknown) (no (unknown) (unknown) Myocardial infarct (units (unknown) date) unknown) (unknown) (no (unknown) (unknown) Narrative (units (unkn own) date) unknown) (unknown) (no (unknown) (unknown) Neck (units (unkno wn) date) unknown) (unknown) (no (unknown) (unknown) Neck:?normal (units (u nknown) date) visual inspection unknown) and no lymphadenopathy noted (unknown) (no (unknown) (unknown) Neuro (units (unkno wn) date) unknown) (unknown) (no (unknown) (unknown) Neurologic (units (unk nown) date) unknown) (unknown) (no (unknown) (unknown) Neurologic: Denies (units (unknown) date) behavioral changes, unknown) Denies confusion, Denies dizziness, (unknown) (no (unknown) (unknown) No Action (units (unkn own) date) unknown) (unknown) (no (unknown) (unknown) No deformities, (units (unknown) date) swelling, erythema, unknown) tenderness to palpation. Full range of (unknown) (no (unknown) (unknown) Nose:?external (units (unknown) date) nose normal unknown) (unknown) (no (unknown) (unknown) Oxygen Delivery (units (unknown) date) Method 05/10/22 unknown) 15:00 (unknown) (no (unknown) (unknown) Oxygen Delivery (units (unknown) date) Method Room Air unknown) Room Air Room Air (unknown) (no (unknown) (unknown) Patient (units (unkno wn) date) Disposition: Home unknown) (unknown) (no (unknown) (unknown) Patient History (units (unknown) date) unknown) (unknown) (no (unknown) (unknown) Patient denies any (units (unknown) date) fevers, chills, unknown) chest pain, shortness of breath, (unknown) (no (unknown) (unknown) Patient: (units (unkno wn) date) Twan Bearden unknown) MR#: [id number] (unknown) (no (unknown) (unknown) Please follow-up (units (unknown) date) with your PCP in 3 unknown) days. Return to the ED if your symptoms (unknown) (no (unknown) (unknown) Prescriptions: (units (unknown) date) unknown) (unknown) (no (unknown) (unknown) Previous Rx's (units ( unknown) date) unknown) (unknown) (no (unknown) (unknown) Psychiatric (units (un known) date) unknown) (unknown) (no (unknown) (unknown) Psychiatric: Denies (units (unknown) date) anxiety, Denies unknown) behavioral changes, Denies confusion, Denies (unknown) (no (unknown) (unknown) Pulse Oximetry 95 (units (unknown) date) 05/10/22 15:00 unknown) (unknown) (no (unknown) (unknown) Pulse Oximetry 95 (units (unknown) date) 96 95 unknown) (unknown) (no (unknown) (unknown) Pulse Rate 79 (units ( unknown) date) 05/10/22 15:00 unknown) (unknown) (no (unknown) (unknown) Pulse Rate 79 73 (units (unknown) date) 68 unknown) (unknown) (no (unknown) (unknown) ROS Unobtainable: (units (unknown) date) All systems unknown) reviewed + are unremarkable except as noted in HPI (unknown) (no (unknown) (unknown) Rate:?regular rate (units (unknown) date) unknown) (unknown) (no (unknown) (unknown) Referrals: (units (unk nown) date) unknown) (unknown) (no (unknown) (unknown) Related Data (units (u nknown) date) unknown) (unknown) (no (unknown) (unknown) Release(Dr/Ec) (units (unknown) date) unknown) (unknown) (no (unknown) (unknown) Resp (units (unkno wn) date) unknown) (unknown) (no (unknown) (unknown) Respiratory Rate (units (unknown) date) 15 05/10/22 15:00 unknown) (unknown) (no (unknown) (unknown) Respiratory Rate (units (unknown) date) 15 unknown) (unknown) (no (unknown) (unknown) Respiratory (units (un known) date) unknown) (unknown) (no (unknown) (unknown) Respiratory: Denies (units (unknown) date) cough, Denies unknown) dyspnea, Denies dyspnea on exertion and Denies (unknown) (no (unknown) (unknown) Review of Systems (units (unknown) date) unknown) (unknown) (no (unknown) (unknown) Rhythm:?regular (units (unknown) date) rhythm unknown) (unknown) (no (unknown) (unknown) Signed By: (units (unk nown) date) unknown) (unknown) (no (unknown) (unknown) Sister Cancer (units ( unknown) date) unknown) (unknown) (no (unknown) (unknown) Skin/Breast: (units (u nknown) date) Denies pruritus, unknown) Denies erythema, Denies rash and Denies wounds (unknown) (no (unknown) (unknown) Smoking Status: (units (unknown) date) Never smoker unknown) (unknown) (no (unknown) (unknown) Social History (units (unknown) date) (Reviewed 05/10/22 unknown) @ 18:39 by Orlando Sebastian PA-C) (unknown) (no (unknown) (unknown) Source: patient (units (unknown) date) unknown) (unknown) (no (unknown) (unknown) Stated Complaint: (units (unknown) date) Arm Pain unknown) (unknown) (no (unknown) (unknown) Stented coronary (units (unknown) date) artery unknown) (unknown) (no (unknown) (unknown) Substance Use (units ( unknown) date) Type: does not use unknown) (unknown) (no (unknown) (unknown) Surgical History (units (unknown) date) (Reviewed 05/10/22 unknown) @ 18:39 by Orlando Sebastian PA-C) (unknown) (no (unknown) (unknown) Temperature 97.9 F (units (unknown) date) 05/10/22 15:00 unknown) (unknown) (no (unknown) (unknown) Temperature 97.9 F (units (unknown) date) unknown) (unknown) (no (unknown) (unknown) Throat:?posterior (units (unknown) date) oropharynx normal unknown) (unknown) (no (unknown) (unknown) Time Seen by (units (u nknown) date) Provider: 05/10/22 unknown) 17:26 (unknown) (no (unknown) (unknown) Vital Signs - 8 hr (units (unknown) date) unknown) (unknown) (no (unknown) (unknown) Vital Signs (units (un known) date) unknown) (unknown) (no (unknown) (unknown) Vital signs: (units (u nknown) date) unknown) (unknown) (no (unknown) (unknown) You were evaluated (units (unknown) date) in the ED today for unknown) left-sided upper arm pain. Your physical (unknown) (no (unknown) (unknown) Radha Queen, (units (unknown) date) JANET [Primary Care unknown) Provider] (unknown) (no (unknown) (unknown) [From Benadryl] (units (unknown) date) unknown) (unknown) (no (unknown) (unknown) acetaminophen 500 (units (unknown) date) mg capsule 1,000 mg unknown) PO .qd PRN 11/24/21 11/24/21 (unknown) (no (unknown) (unknown) acetaminophen 500 (units (unknown) date) mg capsule unknown) (unknown) (no (unknown) (unknown) alcohol intake (units (unknown) date) frequency: other unknown) (unknown) (no (unknown) (unknown) and Denies (units (unk nown) date) orthopnea unknown) (unknown) (no (unknown) (unknown) and Denies urinary (units (unknown) date) urgency unknown) (unknown) (no (unknown) (unknown) and Denies (units (unk nown) date) weakness unknown) (unknown) (no (unknown) (unknown) and below (units (unkn own) date) unknown) (unknown) (no (unknown) (unknown) aspirin 81 mg (units ( unknown) date) Tablet,Chewable unknown) (unknown) (no (unknown) (unknown) aspirin 81 mg (units ( unknown) date) chewable tablet 81 unknown) mg PO DAILY ##0 01/27/08 03/29/21 (unknown) (no (unknown) (unknown) atorvastatin 80 mg (units (unknown) date) Tablet unknown) (unknown) (no (unknown) (unknown) atorvastatin 80 mg (units (unknown) date) tablet 80 mg PO QPM unknown) 09/27/17 03/29/21 (unknown) (no (unknown) (unknown) breath. (units (unkno wn) date) unknown) (unknown) (no (unknown) (unknown) by heat. Also (units ( unknown) date) recommend elevation unknown) of the arm, ibuprofen, Tylenol. Recommend (unknown) (no (unknown) (unknown) celecoxib 200 mg (units (unknown) date) capsule (Celebrex) unknown) 200 mg PO DAILY #90 caps 01/10/22 (unknown) (no (unknown) (unknown) celecoxib (units (unkn own) date) [Celebrex] 200 mg unknown) capsule (unknown) (no (unknown) (unknown) cholecalciferol (units (unknown) date) (vitamin D3) 25 unknown) 1,000 unit PO DAILY 09/27/17 03/29/21 (unknown) (no (unknown) (unknown) cholecalciferol (units (unknown) date) (vitamin D3) unknown) [Vitamin D3] 1,000 unit Capsule (unknown) (no (unknown) (unknown) denies numbness, (units (unknown) date) tingling, weakness. unknown) Patient is endorsing full range of motion. (unknown) (no (unknown) (unknown) depression, Denies (units (unknown) date) homicidal ideation unknown) and Denies suicidal ideation (unknown) (no (unknown) (unknown) diarrhea, Denies (units (unknown) date) nausea and Denies unknown) vomiting (unknown) (no (unknown) (unknown) diphenhydramine (units (unknown) date) Allergy Mild Rash unknown) Verified 05/10/22 15:07 (unknown) (no (unknown) (unknown) do not take 09/26 (units (unknown) date) or 16 have lab done unknown) 09/27 (unknown) (no (unknown) (unknown) exam and history (units (unknown) date) are reassuring. unknown) Your symptoms are likely due to a (unknown) (no (unknown) (unknown) falls, Denies (units ( unknown) date) lethargy and Denies unknown) weakness (unknown) (no (unknown) (unknown) fenofibrate 160 mg (units (unknown) date) tablet 160 mg PO unknown) DAILY 09/27/17 03/29/21 (unknown) (no (unknown) (unknown) fenofibrate 160 mg (units (unknown) date) tablet unknown) (unknown) (no (unknown) (unknown) follow-up with PCP (units (unknown) date) in 3-5 days. ED unknown) return precautions were discussed with (unknown) (no (unknown) (unknown) gabapentin 300 mg (units (unknown) date) capsule 600 mg PO unknown) TID 11/24/21 11/24/21 (unknown) (no (unknown) (unknown) gabapentin 300 mg (units (unknown) date) capsule unknown) (unknown) (no (unknown) (unknown) glimepiride 2 mg (units (unknown) date) tablet 2 mg PO unknown) DAILY 08/24/20 03/29/21 (unknown) (no (unknown) (unknown) glimepiride 2 mg (units (unknown) date) tablet unknown) (unknown) (no (unknown) (unknown) intact. (units (unkno wn) date) unknown) (unknown) (no (unknown) (unknown) lightheadedness, (units (unknown) date) Denies unknown) palpitations, Denies dyspnea, Denies dyspnea on exertion (unknown) (no (unknown) (unknown) lightheadedness, (units (unknown) date) dizziness, syncope. unknown) (unknown) (no (unknown) (unknown) lisinopril AdvReac (units (unknown) date) Severe Cough unknown) Verified 05/10/22 15:07 (unknown) (no (unknown) (unknown) losartan 50 mg (units (unknown) date) tablet 50 mg PO unknown) DAILY 09/27/17 03/29/21 (unknown) (no (unknown) (unknown) losartan 50 mg (units (unknown) date) tablet unknown) (unknown) (no (unknown) (unknown) may also take (units ( unknown) date) Tylenol, ibuprofen unknown) for the pain, raise the arm above heart level. (unknown) (no (unknown) (unknown) mcg (1,000 unit) (units (unknown) date) capsule (Vitamin unknown) (unknown) (no (unknown) (unknown) metformin 500 mg (units (unknown) date) tablet 1,000 mg PO unknown) QPM 09/27/17 03/29/21 (unknown) (no (unknown) (unknown) metformin 500 mg (units (unknown) date) tablet unknown) (unknown) (no (unknown) (unknown) minutes at a time (units (unknown) date) every 1-2 hours. unknown) After that you may apply heat packs. You (unknown) (no (unknown) (unknown) motion of arm. (units (unknown) date) Strength and unknown) sensation intact. Patient is neurovascularly (unknown) (no (unknown) (unknown) musculoskeletal (units (unknown) date) sprain/strain. You unknown) may ice the area for the 1st 24 hours for 10 (unknown) (no (unknown) (unknown) neck pain, Denies (units (unknown) date) sore throat and unknown) Denies throat swelling (unknown) (no (unknown) (unknown) omega (units (unkno wn) date) [id number] oil unknown) [Fish Oil] 360-1,200 mg Capsule,Delayed (unknown) (no (unknown) (unknown) omega-3 360 (units (un known) date) [id number] oil unknown) 1 cap PO QPM 09/27/17 03/29/21 (unknown) (no (unknown) (unknown) patient states (units (unknown) date) does not have this unknown) medication (was on simvastatin) (unknown) (no (unknown) (unknown) patient. Patient (units (unknown) date) verbalized unknown) understanding. (unknown) (no (unknown) (unknown) penicillin G (units (u nknown) date) Allergy Mild Rash unknown) Verified 05/10/22 15:07 (unknown) (no (unknown) (unknown) progressed to (units ( unknown) date) shooting pains from unknown) the top of his arm to the elbow. Patient (unknown) (no (unknown) (unknown) read deformities, (units (unknown) date) tenderness to unknown) palpation. Patient has full range of motion of (unknown) (no (unknown) (unknown) takes all meds in (units (unknown) date) the evening unknown) (unknown) (no (unknown) (unknown) the left arm. (units ( unknown) date) There is no unknown) erythema or swelling. Patient's symptoms likely due (unknown) (no (unknown) (unknown) to musculoskeletal (units (unknown) date) sprain/strain. unknown) Recommend ice for the 1st 24 hours followed (unknown) (no (unknown) (unknown) to the gym, lifts (units (unknown) date) weight. His pain unknown) 1st started after a weightlifting session, (unknown) (no (unknown) (unknown) wheezing (units (unkno wn) date) unknown) (unknown) (no (unknown) (unknown) with 3 days of (units (unknown) date) left-sided upper unknown) arm pain. Patient states that he regularly goes (unknown) (no (unknown) (unknown) with 3 days of (units (unknown) date) left-sided upper unknown) arm pain. Physical exam was reassuring for no (unknown) (no (unknown) (unknown) worsen, you (units (un known) date) experience unknown) numbness, tingling, weakness, chest pain, shortness of Result panel 2 (unknown) (no (unknown) (unknown) (no value) (units (unk nown) date) unknown) (unknown) (no (unknown) (unknown) <Isaias Garcia (units (unknown) date) - Last Filed: unknown) 05/16/22 08:32> (unknown) (no (unknown) (unknown) <Electronically (units (unknown) date) signed by Isaias unknown) Radha CHERRY> (unknown) (no (unknown) (unknown) <Electronically (units (unknown) date) signed by Isaias unknown) MD Radha> (unknown) (no (unknown) (unknown) <Electronically (units (unknown) date) signed by Orlando unknown) Jorge Sebastian> (unknown) (no (unknown) (unknown) <Orlando Sebastian PA-C (units (unknown) date) - Last Filed: unknown) 05/10/22 18:40> (unknown) (no (unknown) (unknown) <cosigner> (units (unk nown) date) unknown) (unknown) (no (unknown) (unknown) (Fish Oil) (units (unk nown) date) unknown) (unknown) (no (unknown) (unknown) 05/16/22 0832 (units ( unknown) date) unknown) (unknown) (no (unknown) (unknown) [id number] (units (unkno wn) date) unknown) (unknown) (no (unknown) (unknown) 1 cap PO QPM (units (u nknown) date) unknown) (unknown) (no (unknown) (unknown) 1,000 mg PO .qd (units (unknown) date) PRN unknown) (unknown) (no (unknown) (unknown) 1,000 mg PO QPM (units (unknown) date) unknown) (unknown) (no (unknown) (unknown) 1,000 unit PO (units ( unknown) date) DAILY unknown) (unknown) (no (unknown) (unknown) 1,200 mg (units (unkno wn) date) capsule,delayed unknown) release (unknown) (no (unknown) (unknown) 05/10/22 1840 (units ( unknown) date) unknown) (unknown) (no (unknown) (unknown) 05/10/22 (units (unkno wn) date) unknown) (unknown) (no (unknown) (unknown) 15:00 05/10/22 (units (unknown) date) unknown) (unknown) (no (unknown) (unknown) 160 mg PO DAILY (units (unknown) date) unknown) (unknown) (no (unknown) (unknown) 17:06 05/10/22 (units (unknown) date) unknown) (unknown) (no (unknown) (unknown) 18:01 (units (unkno wn) date) unknown) (unknown) (no (unknown) (unknown) 2 mg PO DAILY (units ( unknown) date) unknown) (unknown) (no (unknown) (unknown) 200 mg PO DAILY (units (unknown) date) Qty: 90 2RF unknown) (unknown) (no (unknown) (unknown) 50 mg PO DAILY (units (unknown) date) unknown) (unknown) (no (unknown) (unknown) 600 mg PO TID (units ( unknown) date) unknown) (unknown) (no (unknown) (unknown) 76-year-old male (units (unknown) date) with diabetes, unknown) distant myocardial infarction presents to the ED (unknown) (no (unknown) (unknown) 80 mg PO QPM (units (u nknown) date) unknown) (unknown) (no (unknown) (unknown) 81 mg PO DAILY (units (unknown) date) Qty: 0 unknown) (unknown) (no (unknown) (unknown) Activity (units (unkno wn) date) Restrictions/Additi unknown) onal Instructions: (unknown) (no (unknown) (unknown) Age/Sex: 76 / M (units (unknown) date) unknown) (unknown) (no (unknown) (unknown) Allergic/Immunolog (units (unknown) date) ic unknown) (unknown) (no (unknown) (unknown) Allergic/Immunolog (units (unknown) date) ic: Denies unknown) urticaria, Denies throat swelling and Denies (unknown) (no (unknown) (unknown) Allergies (units (unkn own) date) unknown) (unknown) (no (unknown) (unknown) Allergy/AdvReac (units (unknown) date) Type Severity unknown) Reaction Status Date / Time (unknown) (no (unknown) (unknown) Arm pain (units (unkno wn) date) unknown) (unknown) (no (unknown) (unknown) Auscultation:?yohan (units (unknown) date) r to auscultation unknown) bilaterally (unknown) (no (unknown) (unknown) Blood Pressure (units (unknown) date) 188/81 H 05/10/22 unknown) 15:00 (unknown) (no (unknown) (unknown) Blood Pressure (units (unknown) date) 188/81 H 182/86 H unknown) 173/78 H (unknown) (no (unknown) (unknown) Cardio (units (unkno wn) date) unknown) (unknown) (no (unknown) (unknown) Cardiovascular (units (unknown) date) unknown) (unknown) (no (unknown) (unknown) Cardiovascular: (units (unknown) date) Denies chest pain, unknown) Denies irregular heart rhythm, Denies (unknown) (no (unknown) (unknown) Cervical (units (unkno wn) date) spondylosis unknown) (unknown) (no (unknown) (unknown) Chief Complaint: (units (unknown) date) Extremity Injury, unknown) Upper (unknown) (no (unknown) (unknown) Clinical (units (unkno wn) date) Impression: unknown) (unknown) (no (unknown) (unknown) Comments: (units (unkn own) date) unknown) (unknown) (no (unknown) (unknown) Const (units (unkno wn) date) unknown) (unknown) (no (unknown) (unknown) Constitutional (units (unknown) date) unknown) (unknown) (no (unknown) (unknown) Constitutional: (units (unknown) date) Denies chills, unknown) Denies fatigue, Denies fever(s), Denies frequent (unknown) (no (unknown) (unknown) Cosign (units (unkno wn) date) unknown) (unknown) (no (unknown) (unknown) Course (units (unkno wn) date) unknown) (unknown) (no (unknown) (unknown) D3) (units (unkno wn) date) unknown) (unknown) (no (unknown) (unknown) 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), unknown) thoracic (unknown) (no (unknown) (unknown) : 1945 (units (unknown) date) Acct:[id number] unknown) (unknown) (no (unknown) (unknown) Date of Service: (units (unknown) date) 05/10/22 unknown) (unknown) (no (unknown) (unknown) 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 (unknown) (no (unknown) (unknown) Denies frequent (units (unknown) date) falls, Denies loss unknown) of vision, Denies numbness, Denies tingling (unknown) (no (unknown) (unknown) Denies loss of (units (unknown) date) vision unknown) (unknown) (no (unknown) (unknown) Denies numbness (units (unknown) date) and Denies tingling unknown) (unknown) (no (unknown) (unknown) Departure (units (unkn own) date) unknown) (unknown) (no (unknown) (unknown) Diabetes (units (unkno wn) date) unknown) (unknown) (no (unknown) (unknown) Discharge Plan (units (unknown) date) unknown) (unknown) (no (unknown) (unknown) ED Attending (units (u nknown) date) Cosignature unknown) Attestation: (unknown) (no (unknown) (unknown) ENT (units (unkno wn) date) unknown) (unknown) (no (unknown) (unknown) ER Physician: (units ( unknown) date) Orlando Sebastian P.A-C unknown) (unknown) (no (unknown) (unknown) Ears, Nose, Mouth, (units (unknown) date) and Throat: Denies unknown) change in voice, Denies dizziness, Denies (unknown) (no (unknown) (unknown) Ears:?hearing (units ( unknown) date) grossly normal unknown) bilaterally (unknown) (no (unknown) (unknown) Effort + (units (unkno wn) date) Inspection:?normal unknown) respiratory effort (unknown) (no (unknown) (unknown) Emergency Report (units (unknown) date) unknown) (unknown) (no (unknown) (unknown) Endocrine (units (unkn own) date) unknown) (unknown) (no (unknown) (unknown) Endocrine: Denies (units (unknown) date) fatigue, Denies unknown) flushing and Denies palpitations (unknown) (no (unknown) (unknown) Exam Narrative: (units (unknown) date) unknown) (unknown) (no (unknown) (unknown) Exam (units (unkno wn) date) unknown) (unknown) (no (unknown) (unknown) Eyes (units (unkno wn) date) unknown) (unknown) (no (unknown) (unknown) Eyes: Denies (units (u nknown) date) change in vision, unknown) Denies eye discharge, Denies irritation and (unknown) (no (unknown) (unknown) Face and (units (unkno wn) date) sinus:?normal unknown) facial exam and sinuses nontender (unknown) (no (unknown) (unknown) Facet arthropathy, (units (unknown) date) lumbar unknown) (unknown) (no (unknown) (unknown) Family History (units (unknown) date) (Reviewed 05/10/22 unknown) @ 18:39 by Orlando Sebastian PA-C) (unknown) (no (unknown) (unknown) Gastrointestinal (units (unknown) date) unknown) (unknown) (no (unknown) (unknown) Gastrointestinal: (units (unknown) date) Denies abdominal unknown) pain, Denies change in bowel habits, Denies (unknown) (no (unknown) (unknown) General (units (unkno wn) date) unknown) (unknown) (no (unknown) (unknown) General:?appearanc (units (unknown) date) e normal, both eyes unknown) and all related structures (unknown) (no (unknown) (unknown) General:?cooperati (units (unknown) date) ve, healthy unknown) appearing and comfortable (unknown) (no (unknown) (unknown) General:?patient (units (unknown) date) alert, patient unknown) awake and patient oriented x3 (unknown) (no (unknown) (unknown) Genitourinary (units ( unknown) date) unknown) (unknown) (no (unknown) (unknown) Genitourinary: (units (unknown) date) Denies hematuria, unknown) Denies flank pain, Denies urinary incontinence (unknown) (no (unknown) (unknown) HENMT (units (unkno wn) date) unknown) (unknown) (no (unknown) (unknown) HPI - Extremity (units (unknown) date) Injury (Upper) unknown) (unknown) (no (unknown) (unknown) HPI narrative: (units (unknown) date) unknown) (unknown) (no (unknown) (unknown) Head:?normal to (units (unknown) date) inspection unknown) (unknown) (no (unknown) (unknown) Hematologic/Lympha (units (unknown) date) tic unknown) (unknown) (no (unknown) (unknown) Hematologic/Lympha (units (unknown) date) tic: Denies easy unknown) bruising (unknown) (no (unknown) (unknown) Herniated nucleus (units (unknown) date) pulposus, L4-5 unknown) (unknown) (no (unknown) (unknown) High cholesterol (units (unknown) date) unknown) (unknown) (no (unknown) (unknown) History of Present (units (unknown) date) Illness unknown) (unknown) (no (unknown) (unknown) History of (units (unk nown) date) cataract removal unknown) with insertion of prosthetic lens (unknown) (no (unknown) (unknown) Home Medications (units (unknown) date) unknown) (unknown) (no (unknown) (unknown) I was immediately (units (unknown) date) available in the unknown) department for consultation. ?This (unknown) (no (unknown) (unknown) Initial Vital (units ( unknown) date) Signs unknown) (unknown) (no (unknown) (unknown) Initial Vital (units ( unknown) date) Signs: unknown) (unknown) (no (unknown) (unknown) Instructions: DI (units (unknown) date) for Arm Pain unknown) (unknown) (no (unknown) (unknown) Integumentary/Kennedi (units (unknown) date) sts unknown) (unknown) (no (unknown) (unknown) [facility] (units (unknown) date) [address] [place] [address] Street unknown) [place] [address] (unknown) (no (unknown) (unknown) Label Comments: (units (unknown) date) unknown) (unknown) (no (unknown) (unknown) Left-sided upper (units (unknown) date) arm pain unknown) (unknown) (no (unknown) (unknown) Lumbar (units (unkno wn) date) radiculopathy unknown) (unknown) (no (unknown) (unknown) MDM - Extremity (units (unknown) date) Injury (Upper) unknown) (unknown) (no (unknown) (unknown) MDM Narrative (units ( unknown) date) unknown) (unknown) (no (unknown) (unknown) Medical History (units (unknown) date) (Reviewed 05/10/22 unknown) @ 18:39 by Orlando Sebastian PA-C) (unknown) (no (unknown) (unknown) Medical decision (units (unknown) date) making narrative: unknown) (unknown) (no (unknown) (unknown) Medication (units (unk nown) date) Instructions unknown) Recorded Confirmed (unknown) (no (unknown) (unknown) Medication (units (unk nown) date) Instructions unknown) Recorded (unknown) (no (unknown) (unknown) Mode of arrival: (units (unknown) date) EMS unknown) (unknown) (no (unknown) (unknown) Morbid obesity due (units (unknown) date) to excess calories unknown) (unknown) (no (unknown) (unknown) Mouth:?oral (units (un known) date) mucosae normal unknown) (unknown) (no (unknown) (unknown) Musculoskeletal (units (unknown) date) unknown) (unknown) (no (unknown) (unknown) Musculoskeletal: (units (unknown) date) Denies back pain, unknown) Denies muscle weakness, Denies neck pain, (unknown) (no (unknown) (unknown) Myocardial infarct (units (unknown) date) unknown) (unknown) (no (unknown) (unknown) Narrative (units (unkn own) date) unknown) (unknown) (no (unknown) (unknown) Neck (units (unkno wn) date) unknown) (unknown) (no (unknown) (unknown) Neck:?normal (units (u nknown) date) visual inspection unknown) and no lymphadenopathy noted (unknown) (no (unknown) (unknown) Neuro (units (unkno wn) date) unknown) (unknown) (no (unknown) (unknown) Neurologic (units (unk nown) date) unknown) (unknown) (no (unknown) (unknown) Neurologic: Denies (units (unknown) date) behavioral changes, unknown) Denies confusion, Denies dizziness, (unknown) (no (unknown) (unknown) No Action (units (unkn own) date) unknown) (unknown) (no (unknown) (unknown) No deformities, (units (unknown) date) swelling, erythema, unknown) tenderness to palpation. Full range of (unknown) (no (unknown) (unknown) Nose:?external (units (unknown) date) nose normal unknown) (unknown) (no (unknown) (unknown) Oxygen Delivery (units (unknown) date) Method 05/10/22 unknown) 15:00 (unknown) (no (unknown) (unknown) Oxygen Delivery (units (unknown) date) Method Room Air unknown) Room Air Room Air (unknown) (no (unknown) (unknown) Patient (units (unkno wn) date) Disposition: Home unknown) (unknown) (no (unknown) (unknown) Patient History (units (unknown) date) unknown) (unknown) (no (unknown) (unknown) Patient denies any (units (unknown) date) fevers, chills, unknown) chest pain, shortness of breath, (unknown) (no (unknown) (unknown) Patient: (units (unkno wn) date) Twan Bearden O unknown) MR#: [id number] (unknown) (no (unknown) (unknown) Please follow-up (units (unknown) date) with your PCP in 3 unknown) days. Return to the ED if your symptoms (unknown) (no (unknown) (unknown) Prescriptions: (units (unknown) date) unknown) (unknown) (no (unknown) (unknown) Previous Rx's (units ( unknown) date) unknown) (unknown) (no (unknown) (unknown) Psychiatric (units (un known) date) unknown) (unknown) (no (unknown) (unknown) Psychiatric: Denies (units (unknown) date) anxiety, Denies unknown) behavioral changes, Denies confusion, Denies (unknown) (no (unknown) (unknown) Pulse Oximetry 95 (units (unknown) date) 05/10/22 15:00 unknown) (unknown) (no (unknown) (unknown) Pulse Oximetry 95 (units (unknown) date) 96 95 unknown) (unknown) (no (unknown) (unknown) Pulse Rate 79 (units ( unknown) date) 05/10/22 15:00 unknown) (unknown) (no (unknown) (unknown) Pulse Rate 79 73 (units (unknown) date) 68 unknown) (unknown) (no (unknown) (unknown) ROS Unobtainable: (units (unknown) date) All systems unknown) reviewed + are unremarkable except as noted in HPI (unknown) (no (unknown) (unknown) Rate:?regular rate (units (unknown) date) unknown) (unknown) (no (unknown) (unknown) Referrals: (units (unk nown) date) unknown) (unknown) (no (unknown) (unknown) Related Data (units (u nknown) date) unknown) (unknown) (no (unknown) (unknown) Release(Dr/Ec) (units (unknown) date) unknown) (unknown) (no (unknown) (unknown) Resp (units (unkno wn) date) unknown) (unknown) (no (unknown) (unknown) Respiratory Rate (units (unknown) date) 15 05/10/22 15:00 unknown) (unknown) (no (unknown) (unknown) Respiratory Rate (units (unknown) date) 15 unknown) (unknown) (no (unknown) (unknown) Respiratory (units (un known) date) unknown) (unknown) (no (unknown) (unknown) Respiratory: Denies (units (unknown) date) cough, Denies unknown) dyspnea, Denies dyspnea on exertion and Denies (unknown) (no (unknown) (unknown) Review of Systems (units (unknown) date) unknown) (unknown) (no (unknown) (unknown) Rhythm:?regular (units (unknown) date) rhythm unknown) (unknown) (no (unknown) (unknown) Signed By: (units (unk nown) date) unknown) (unknown) (no (unknown) (unknown) Sister Cancer (units ( unknown) date) unknown) (unknown) (no (unknown) (unknown) Skin/Breast: (units (u nknown) date) Denies pruritus, unknown) Denies erythema, Denies rash and Denies wounds (unknown) (no (unknown) (unknown) Smoking Status: (units (unknown) date) Never smoker unknown) (unknown) (no (unknown) (unknown) Social History (units (unknown) date) (Reviewed 05/10/22 unknown) @ 18:39 by Orlando Sebastian PA-C) (unknown) (no (unknown) (unknown) Source: patient (units (unknown) date) unknown) (unknown) (no (unknown) (unknown) Stated Complaint: (units (unknown) date) Arm Pain unknown) (unknown) (no (unknown) (unknown) Stented coronary (units (unknown) date) artery unknown) (unknown) (no (unknown) (unknown) Substance Use (units ( unknown) date) Type: does not use unknown) (unknown) (no (unknown) (unknown) Supervised by (units ( unknown) date) Isaias Garcia MD unknown) (unknown) (no (unknown) (unknown) Surgical History (units (unknown) date) (Reviewed 05/10/22 unknown) @ 18:39 by rOlando Sebastian PA-C) (unknown) (no (unknown) (unknown) Temperature 97.9 F (units (unknown) date) 05/10/22 15:00 unknown) (unknown) (no (unknown) (unknown) Temperature 97.9 F (units (unknown) date) unknown) (unknown) (no (unknown) (unknown) Throat:?posterior (units (unknown) date) oropharynx normal unknown) (unknown) (no (unknown) (unknown) Time Seen by (units (u nknown) date) Provider: 05/10/22 unknown) 17:26 (unknown) (no (unknown) (unknown) Visit Report (units (u nknown) date) Forms: Patient unknown) Portal/API (unknown) (no (unknown) (unknown) Vital Signs - 8 hr (units (unknown) date) unknown) (unknown) (no (unknown) (unknown) Vital Signs (units (un known) date) unknown) (unknown) (no (unknown) (unknown) Vital signs: (units (u nknown) date) unknown) (unknown) (no (unknown) (unknown) You were evaluated (units (unknown) date) in the ED today for unknown) left-sided upper arm pain. Your physical (unknown) (no (unknown) (unknown) Radha Queen, (units (unknown) date) JANET [Primary Care unknown) Provider] (unknown) (no (unknown) (unknown) [From Benadryl] (units (unknown) date) unknown) (unknown) (no (unknown) (unknown) acetaminophen 500 (units (unknown) date) mg capsule 1,000 mg unknown) PO .qd PRN 11/24/21 11/24/21 (unknown) (no (unknown) (unknown) acetaminophen 500 (units (unknown) date) mg capsule unknown) (unknown) (no (unknown) (unknown) alcohol intake (units (unknown) date) frequency: other unknown) (unknown) (no (unknown) (unknown) and Denies (units (unk nown) date) orthopnea unknown) (unknown) (no (unknown) (unknown) and Denies urinary (units (unknown) date) urgency unknown) (unknown) (no (unknown) (unknown) and Denies (units (unk nown) date) weakness unknown) (unknown) (no (unknown) (unknown) and below (units (unkn own) date) unknown) (unknown) (no (unknown) (unknown) aspirin 81 mg (units ( unknown) date) Tablet,Chewable unknown) (unknown) (no (unknown) (unknown) aspirin 81 mg (units ( unknown) date) chewable tablet 81 unknown) mg PO DAILY ##0 01/27/08 03/29/21 (unknown) (no (unknown) (unknown) atorvastatin 80 mg (units (unknown) date) Tablet unknown) (unknown) (no (unknown) (unknown) atorvastatin 80 mg (units (unknown) date) tablet 80 mg PO QPM unknown) 09/27/17 03/29/21 (unknown) (no (unknown) (unknown) breath. (units (unkno wn) date) unknown) (unknown) (no (unknown) (unknown) by heat. Also (units ( unknown) date) recommend elevation unknown) of the arm, ibuprofen, Tylenol. Recommend (unknown) (no (unknown) (unknown) celecoxib 200 mg (units (unknown) date) capsule (Celebrex) unknown) 200 mg PO DAILY #90 caps 01/10/22 (unknown) (no (unknown) (unknown) celecoxib (units (unkn own) date) [Celebrex] 200 mg unknown) capsule (unknown) (no (unknown) (unknown) cholecalciferol (units (unknown) date) (vitamin D3) 25 unknown) 1,000 unit PO DAILY 09/27/17 03/29/21 (unknown) (no (unknown) (unknown) cholecalciferol (units (unknown) date) (vitamin D3) unknown) [Vitamin D3] 1,000 unit Capsule (unknown) (no (unknown) (unknown) denies numbness, (units (unknown) date) tingling, weakness. unknown) Patient is endorsing full range of motion. (unknown) (no (unknown) (unknown) depression, Denies (units (unknown) date) homicidal ideation unknown) and Denies suicidal ideation (unknown) (no (unknown) (unknown) diarrhea, Denies (units (unknown) date) nausea and Denies unknown) vomiting (unknown) (no (unknown) (unknown) diphenhydramine (units (unknown) date) Allergy Mild Rash unknown) Verified 05/10/22 15:07 (unknown) (no (unknown) (unknown) do not take 09/26 (units (unknown) date) or 16 have lab done unknown) 09/27 (unknown) (no (unknown) (unknown) documentation has (units (unknown) date) been reviewed and I unknown) agree with assessment and plan. (unknown) (no (unknown) (unknown) exam and history (units (unknown) date) are reassuring. unknown) Your symptoms are likely due to a (unknown) (no (unknown) (unknown) falls, Denies (units ( unknown) date) lethargy and Denies unknown) weakness (unknown) (no (unknown) (unknown) fenofibrate 160 mg (units (unknown) date) tablet 160 mg PO unknown) DAILY 09/27/17 03/29/21 (unknown) (no (unknown) (unknown) fenofibrate 160 mg (units (unknown) date) tablet unknown) (unknown) (no (unknown) (unknown) follow-up with PCP (units (unknown) date) in 3-5 days. ED unknown) return precautions were discussed with (unknown) (no (unknown) (unknown) gabapentin 300 mg (units (unknown) date) capsule 600 mg PO unknown) TID 11/24/21 11/24/21 (unknown) (no (unknown) (unknown) gabapentin 300 mg (units (unknown) date) capsule unknown) (unknown) (no (unknown) (unknown) glimepiride 2 mg (units (unknown) date) tablet 2 mg PO unknown) DAILY 08/24/20 03/29/21 (unknown) (no (unknown) (unknown) glimepiride 2 mg (units (unknown) date) tablet unknown) (unknown) (no (unknown) (unknown) intact. (units (unkno wn) date) unknown) (unknown) (no (unknown) (unknown) lightheadedness, (units (unknown) date) Denies unknown) palpitations, Denies dyspnea, Denies dyspnea on exertion (unknown) (no (unknown) (unknown) lightheadedness, (units (unknown) date) dizziness, syncope. unknown) (unknown) (no (unknown) (unknown) lisinopril AdvReac (units (unknown) date) Severe Cough unknown) Verified 05/10/22 15:07 (unknown) (no (unknown) (unknown) losartan 50 mg (units (unknown) date) tablet 50 mg PO unknown) DAILY 09/27/17 03/29/21 (unknown) (no (unknown) (unknown) losartan 50 mg (units (unknown) date) tablet unknown) (unknown) (no (unknown) (unknown) may also take (units ( unknown) date) Tylenol, ibuprofen unknown) for the pain, raise the arm above heart level. (unknown) (no (unknown) (unknown) mcg (1,000 unit) (units (unknown) date) capsule (Vitamin unknown) (unknown) (no (unknown) (unknown) metformin 500 mg (units (unknown) date) tablet 1,000 mg PO unknown) QPM 09/27/17 03/29/21 (unknown) (no (unknown) (unknown) metformin 500 mg (units (unknown) date) tablet unknown) (unknown) (no (unknown) (unknown) minutes at a time (units (unknown) date) every 1-2 hours. unknown) After that you may apply heat packs. You (unknown) (no (unknown) (unknown) motion of arm. (units (unknown) date) Strength and unknown) sensation intact. Patient is neurovascularly (unknown) (no (unknown) (unknown) musculoskeletal (units (unknown) date) sprain/strain. You unknown) may ice the area for the 1st 24 hours for 10 (unknown) (no (unknown) (unknown) neck pain, Denies (units (unknown) date) sore throat and unknown) Denies throat swelling (unknown) (no (unknown) (unknown) omega (units (unkno wn) date) 1-pti-bce-fish oil unknown) [Fish Oil] 360-1,200 mg Capsule,Delayed (unknown) (no (unknown) (unknown) omega-3 360 (units (un known) date) sh-dou-gzt-fish oil unknown) 1 cap PO QPM 09/27/17 03/29/21 (unknown) (no (unknown) (unknown) patient states (units (unknown) date) does not have this unknown) medication (was on simvastatin) (unknown) (no (unknown) (unknown) patient. Patient (units (unknown) date) verbalized unknown) understanding. (unknown) (no (unknown) (unknown) penicillin G (units (u nknown) date) Allergy Mild Rash unknown) Verified 05/10/22 15:07 (unknown) (no (unknown) (unknown) progressed to (units ( unknown) date) shooting pains from unknown) the top of his arm to the elbow. Patient (unknown) (no (unknown) (unknown) read deformities, (units (unknown) date) tenderness to unknown) palpation. Patient has full range of motion of (unknown) (no (unknown) (unknown) takes all meds in (units (unknown) date) the evening unknown) (unknown) (no (unknown) (unknown) the left arm. (units ( unknown) date) There is no unknown) erythema or swelling. Patient's symptoms likely due (unknown) (no (unknown) (unknown) to musculoskeletal (units (unknown) date) sprain/strain. unknown) Recommend ice for the 1st 24 hours followed (unknown) (no (unknown) (unknown) to the gym, lifts (units (unknown) date) weight. His pain unknown) 1st started after a weightlifting session, (unknown) (no (unknown) (unknown) wheezing (units (unkno wn) date) unknown) (unknown) (no (unknown) (unknown) with 3 days of (units (unknown) date) left-sided upper unknown) arm pain. Patient states that he regularly goes (unknown) (no (unknown) (unknown) with 3 days of (units (unknown) date) left-sided upper unknown) arm pain. Physical exam was reassuring for no (unknown) (no (unknown) (unknown) worsen, you (units (un known) date) experience unknown) numbness, tingling, weakness, chest pain, shortness of Social History date description facility 2022-05-10 00:00 Never smoked tobacco (finding) [facility] Vital Signs date measurement value units 2022-05-10 00:00 BMI 35.0 kg/m2 2022-05-10 00:00 BP_diastolic 78 mmHg 2022-05-10 00:00 BP_systolic 173 mmHg 2022-05-10 00:00 heart_rate 68 /min 2022-05-10 00:00 height_metric 170.18 cm 2022-05-10 00:00 height_standard 67 in 2022-05-10 00:00 o2_saturation 95 % 2022-05-10 00:00 respiration_rate 15 /min 2022-05-10 00:00 temperature_metric 36.61 C 2022-05-10 00:00 temperature_standard 97.9 F 2022-05-10 00:00 weight_metric 101.6 kg 2022-05-10 00:00 weight_standard 223.99 lb
[2022-08-05] MEDS ORDERED: HYDROmorphone 2 MG TABLET PO STA (07:01)
[2022-08-05] MEDS ORDERED: HYDROmorphone 1 MG/ML CARPUJECT IM STA (09:05)
--- NOTE | 2022-08-05 10:28 | ED Physician Documentation ---
ED Addendum - Addendum Addendum: Patient signed out to me by Dr. Mcclain pending reevaluation after receiving pain medication. Patient had a hip replacement surgery yesterday and was discharged later in the evening.He presented to the emergency department this morning with increased pain and difficulty getting out of bed. Dr. Mcclain had ordered a dose of p.o. Dilaudid which she has prescribed at home. During further conversation patient and tell me that his most recent dose of pain medication prior to this was around 11 or midnight and that he has written to receive something every 4 hours. While the Dilaudid has helped somewhat and his pain I am concerned that he is now behind in his pain regiment and we need to Given additional dose to get his pain back under control. We will then attempt to mobilize him. Patient is having difficulty in getting out of the hospital bed.They do not have a recliner at home. When he is able to get out of the bed with assistance he is able to take some steps and pivot.However the current issue appears to be getting in and out of bed. We will have PT and OT evaluate him to see if they have other suggestions at this time. PT and OT have seen the patient and do not feel that he is safe for discharge home. They are recommending a SNF.ER social work is unavailable today but nursing staff has reached out to block and case maker to see if she can help with placement. 1350 - Discussed with Dr. Kaye, orthopedic surgery at [facility] on-call for Dr. Copeland. He states that they are not able to readmit the patient for placement. He will pass a message on to Dr. Copeland to let him know his patient is here. 08/05/22 17:54 Patient remains boarding in the emergency department. Case management has been helpful today and trying to reach out to facilities to find an accepting SNF. I have ordered his home medications including prophylaxis Lovenox and he has received a dose today.Patient will remain boarding in the emergency department pending safe disposition. He will be signed out to oncoming provider. Departure - Departure Clinical Impression: Status post right hip replacement Condition: Stable
[2022-08-05] MEDS: ACETAMINOPHEN 500 MG TABLET PO SCH ×2 (13:17→19:15)
[2022-08-05] MEDS: HYDROmorphone 2 MG TABLET PO PRN ×2 (13:17→15:27)
[2022-08-05] MEDS ORDERED: ENOXAPARIN 40 MG/0.4 ML SYRINGE SUBQ STA (15:13)
[2022-08-05] MEDS ORDERED: metFORMIN 500 MG TABLET PO SCH (21:00)
[2022-08-06] MEDS: ACETAMINOPHEN 500 MG TABLET PO SCH ×3 (01:37→13:14)
[2022-08-06] MEDS ORDERED: PANTOPRAZOLE 40 MG TABLET PO SCH (07:00)
[2022-08-06] MEDS ORDERED: LOSARTAN 50 MG TABLET PO SCH (09:00)
[2022-08-06] MEDS ORDERED: ENOXAPARIN 40 MG/0.4 ML SYRINGE SUBQ SCH (09:00)
[2022-08-06] MEDS ORDERED: GLIMEPIRIDE 2 MG TABLET PO SCH (09:00)
[2022-08-06] MEDS ORDERED: METOPROLOL SUCCINATE 50 MG TABLET PO SCH (09:00)
[2022-08-06] MEDS ORDERED: CELECOXIB 100 MG CAPSULE PO SCH (09:00)
[2022-08-06] MEDS ORDERED: ATORVASTATIN 40 MG TABLET PO SCH (09:00)
[2022-08-06] MEDS ORDERED: FENOFIBRATE 48 MG TABLET PO SCH (09:00)
[2022-08-06] MEDS: HYDROmorphone 2 MG TABLET PO PRN (09:03)
[2022-08-06 09:09] VITALS: BP 131/66
--- NOTE | 2022-08-06 09:57 | ED Physician Documentation ---
ED Addendum - Addendum Addendum: Patient is doing significantly better this morning. He has not required as frequent dosing for pain control overnight. He is able to get up out of bed on his own and ambulate with his walker. He was able to demonstrate this to me a few times this morning. He is feeling stronger and feels that his pain is adequately controlled. He feels he has a good set up at his home with a bedside commode and a walker and feels that he would be able to manage at home now.Social work has met with him to offer additional resources such as getting caregivers in the home. His is also come to the emergency department and saying that he is improving and comfortable with plan for discharge. They additionally have reached out to some neighbors for additional support over the weekend. Departure - Departure Disposition: Home, Self Care Clinical Impression: Status post right hip replacement Condition: Stable Instructions: ED Post Op Pain Follow-Up: Beau Copeland DO [Physician No Access] - Comments: Please continue with your pain regiment as prescribed by your orthopedic surgeon. It is important to tolerate not to push yourself too much Right after a big surgery. Your rehab will continue to take some time. Please use the walker and the bedside commode that you have at home while you are regaining your strength and mobility.Please utilize the information given to you by our social services for additional assistance at home as this may be helpful. Please follow- up with your orthopedic surgeon as well as with PT. If you have any new or worsening symptoms consider return to the emergency department.
== END 2022-08-06 16:24 | disposition home or self-care (01) ==
LOC: EDUNIT# → ED 04:53
DX: G89.18 Other acute postprocedural pain (principal); M25.551 Pain in right hip
CPT/HCPCS: 96372; 99283; 99284; A9270; J1170; J1650

== ENCOUNTER 2022-10-24 07:36 | Outpatient (CLI) | payer BC ==
[2022-10-24 12:59] LABS: FOLATE 9.08 ng/mL (5.90 - >24.8)
[2022-10-24 13:25] LABS: % IRON SATURATION 7 % (20-50); IRON 39 ug/dL (45-182); TOTAL IRON BINDING CAPACITY 577 ug/dL (250-450); TRANSFERRIN 412 mg/dL (180-329)
== END 2022-10-24 07:37 | disposition home or self-care (01) ==
LOC: LAB.N 07:36
PROVIDERS: ATTEND Physician Assistant Medical
DX: D64.9 Anemia, unspecified (principal)
CPT/HCPCS: 36415; 82607; 82728; 82746; 83540; 84466

== ENCOUNTER 2022-10-27 08:00 | Outpatient (CLI) | payer BC | END 2022-10-27 23:59 | disposition home or self-care (01) | LOC: LAB.WCP 08:00 | PROVIDERS: ATTEND Physician Assistant Medical | DX: R30.0 Dysuria (principal) | CPT/HCPCS: 87086; 87181 ==

== ENCOUNTER 2023-01-04 07:10 | Outpatient (CLI) | payer BC ==
[2023-01-04 12:39] LABS: BASOPHILS % (AUTO) 0.4 %; EOSINOPHILS # (AUTO) 0.2 10^3/uL (0.0-0.7); EOSINOPHILS % (AUTO) 3.3 %; HCT - HEMATOCRIT 44.2 % (42.0-52.0); HGB - HEMOGLOBIN 13.4 g/dL (14.0-18.0); LYMPHOCYTES # (AUTO) 1.3 10^3/uL (1.5-3.5); LYMPHOCYTES % (AUTO) 23.9 %; MEAN CORPUSCULAR HEMOGLOBIN 27.3 pg (27.0-31.0); MEAN CORPUSCULAR HGB CONC 30.3 g/dL (32.0-36.0); MEAN PLATELET VOLUME 10.6 fL (7.4-11.4); MONOCYTES # (AUTO) 0.6 10^3/uL (0.0-1.0); MONOCYTES % (AUTO) 10.2 %; NEUTROPHILS # (AUTO) 3.4 10^3/uL (1.5-6.6); NEUTROPHILS % (AUTO) 61.8 %; PLT - PLATELET COUNT 258 10^3/uL (130-450); RED BLOOD COUNT 4.91 10^6/uL (4.70-6.10); RED CELL DISTRIBUTION WIDTH 19.5 % (12.0-15.0); WHITE BLOOD COUNT 5.5 x10^3/uL (4.8-10.8)
[2023-01-04 12:49] LABS: ESTIMATED AVERAGE GLUCOSE 151 mg/dL (70-100); HEMOGLOBIN A1c% 6.9 % (4.27-6.07)
[2023-01-04 13:04] LABS: FERRITIN 17.8 ng/mL (23.9-336.2)
[2023-01-04 13:12] LABS: ALBUMIN 4.2 g/dL (3.2-5.5); ALBUMIN/GLOBULIN RATIO 1.6 (1.0-2.2); ALKALINE PHOSPHATASE 45 IU/L (42-121); ALT ALANINE AMINOTRANSFERASE 10 IU/L (10-60); AST ASPARTATE AMINOTRANSFERASE 11 IU/L (10-42); BILIRUBIN,TOTAL 0.4 mg/dL (0.2-1.0); BUN - BLOOD UREA NITROGEN 25 mg/dL (6-20); CALCIUM 9.8 mg/dL (8.5-10.3); CARBON DIOXIDE - CO2 30 mmol/L (21-32); CHLORIDE 107 mmol/L (101-111); CHOL/HDL RATIO 4.7 (<5.0); CHOLESTEROL 127 mg/dL; CREATININE 1.2 mg/dL (0.6-1.3); GFR - MDRD 59 (>89); GLUCOSE 137 mg/dL (74-104); HDL CHOLESTEROL 27 mg/dL; LDL CHOLESTEROL,CALCULATED 61 mg/dL; LDL/HDL RATIO 2.3 (<3.6); POTASSIUM 4.6 mmol/L (3.5-4.5); SODIUM 140 mmol/L (135-145); TOTAL PROTEIN 6.8 g/dL (6.4-8.9); TRIGLYCERIDES 196 mg/dL (48-352); VLDL CHOLESTEROL 39 mg/dL
== END 2023-01-04 07:11 | disposition home or self-care (01) ==
LOC: LAB.N 07:10
PROVIDERS: ATTEND Physician Assistant Medical
DX: E11.9 Type 2 diabetes mellitus without complications (principal); D64.9 Anemia, unspecified; R30.0 Dysuria
CPT/HCPCS: 36415; 80053; 80061; 82728; 83036; 83721; 85025; 87086

== ENCOUNTER 2023-03-24 12:44 | Outpatient (CLI) | payer BC ==
--- NOTE | 2023-03-24 13:24 | Sleep Patient Instructions ---
Sleep Center Visit Summary - Patient Visit Information Reason for Visit: Initial consult for evaluation of sleep disordered breathing and other sleep issues. - Patient Instructions Instructions Attached: Sleep Study Additional Instructions: You will be completing a sleep study, either an in-lab polysomnography (PSG) or home sleep study (HST). You will follow-up in the sleep care office after the sleep study is completed to hear the results and talk about therapy, if needed. You will be called by our office staff to schedule this appointment, but you may contact us with any questions. - Clinic Information Contact: [facility] [address] [place] [address] [email or web address] T: [phone]
--- NOTE | 2023-03-24 13:28 | SLEEP CARE CONSULTATION ---
Information from patient questionnaire entered by Niecy Hugo. I have reviewed and concur with the information entered by Niecy Hugo. This document represents the service I personally performed and the decisions made by me, Cornelia Kirk ARNP. History of Present Illness Service Date and Time: 03/24/2023 1244 Reason for Visit: New patient Chief Complaint: reports: Excessive daytime sleepiness Date of Onset: 5 months Usual bedtime: 8-9 PM Time it takes to fall asleep: 1/2-1 hour Snores at night: No Observed to quit breathing while asleep: No Sleeps alone due to snoring: No Number of times waking at night: 1-2 Reasons for waking at night: reports: Bathroom. denies: Choking, Gasping for air Toss, Turn, or Twitch while sleeping: Yes Recalls having dreams: Yes Usually gets out of bed at: 3-4 AM wake up; gets out of bed at 0500 Feels refreshed in the morning: Yes Morning headache: Yes (1 hour) Sleepy or fatigued during the day: Yes Ever fallen asleep while driving: No Takes day naps: Yes (daily, intentionally; some more unintentionally) Dreams during day naps: No Prior sleep studies: Yes ([facility] 2010) Additional HPI information: I had the pleasure of seeing THOMAS SÁNCHEZ today regarding the possibility of him having a sleep disorder. His current complaint is excessive daytime sleepiness. He is here because his hot top liner helper thinks his daytime sleepiness could be because of sleep disordered breathing and his PCP referred him here. He says at night he will fall asleep at his computer for 15-45 minutes and then gets up to go to his bed. He can take up to an hour to fall asleep. He will then wake up 1-2 times at night for the bathroom. He did a sleep study in 2010 but was unable to tolerate Titration study with mask because of his claustrophobia. He says he just "gave up" and went home. He did not return to office until now. His has never mentioned if he snored in his sleep. - Parasomnia Symptoms Ever been unable to move upon waking from sleep: No Walks in sleep: No Talks in sleep: No Ever acted out dreams in sleep: No Ever felt weak in the knees when startled or emotional: No Bothered by creepy, crawly, restless sensations in legs: No Problems with memory or concentration: Yes (difficulty finding correct words; memory) Subjective Initial [place] Sleepiness Scale score: 9 (03/24/23) Past Medical History Past Medical History: reports: Hypertension, Diabetes, Arthritis, Anemia, Other (right hip pain after hip replacement surgery August 04, 2022) Social History The patient's occupation is a RE. Patient is and lives in [place]. Have you smoked in the past 12 months: No Alcohol use: No Caffeine use: No Family History Family history of sleep disordered breathing: No Allergies and Home Medications Known drug allergies: Yes (as listed) Drug allergies reviewed: Yes Home medication list reviewed: Yes Allergy and home medication list: Allergies Penicillins Allergy (Verified 03/23/23 14:06) Edema diphenhydramine HCl * [From Benadryl] Adverse Reaction (Verified 03/23/23 14:06) Unknown lisinopril Adverse Reaction (Verified 03/23/23 14:06) Unknown prednisone Adverse Reaction (Verified 03/23/23 14:06) Unknown Medications: Gabapentin 300 mg Celecoxib 200 mg Cyclobenzaprine HCL 10 mg Losartan Potassium 50 mg Glimepiride 2 mg Fenofibrate 160 mg Metoformin 500 mg Atorvastatin 80 mg Metoprolol succinate 50 mg Review of Systems Weight gain over past 5 years: 20 Cardiovascular: reports: high blood pressure Urinary: reports: incontinence, urgency Neurological: reports: headaches Ear/Nose/Throat: reports: tonsillectomy, wisdom teeth removed Musculoskeletal: reports: joint pain, neck pain, back pain Immunologic: reports: sneezing Physical Exam Vital signs obtained and entered by: Cornelia Damon NP Blood Pressure: 169/89 Cuff size: wrist (right) Heart Rate: 82 O2 Saturation: 97 Height: 5 ft 7 in Weight: 239 lb Body Mass Index: 37.4 BMI Classification: Obese Neck circumference: 18 (inches) Mouth and throat: narrow oropharynx Soft palate: long Hard palate: normal Uvula: normal Uvula visualization: 0% Mallampati Class IV Tongue: enlarged in size with teeth steen on lateral edges Tonsils: absent bilaterally Neck: normal w/o lymphadenopathy or thyromegaly Heart: regular rate and rhythm Lungs: clear bilaterally Impression and Plan 1. Suspected Obstructive Sleep Apnea-Hypopnea Syndrome, as possibly previously diagnosed and as suggested by a history of morning headache, cognitive impairment, and excessive daytime sleepiness. He has history of hypertension and diabetes. Narrow oropharynx and obesity are common predisposing factors for obstructive sleep apnea-hypopnea syndrome. I recommend proceeding to polysomnography to confirm the diagnosis and to assess severity. If the patient has significant sleep disordered breathing, a manual CPAP titration study will also be performed to find the optimal treatment pressure. I informed the patient of what the sleep studies involve and after some discussion, obtained agreement to proceed. The pathophysiology of obstructive sleep apnea-hypopnea syndrome was discussed with the patient and health risks of cardiovascular and cerebrovascular disease if not treated. Risks of drowsy driving discussed in detail and patient advised to avoid long distance driving and to well puller at the first sign of drowsiness. Patient agreed to plan. * Schedule polysomnography. * Avoid long distance driving or driving when feeling sleepy. * Avoid alcohol, sedative and muscle relaxant around bedtime. * Attempt to lose weight. * Review instructions provided by trained office staff on how to prepare for the sleep study. * Return for follow-up after sleep study completed. Counseling Topics: Weight loss health impact Plan: PSG Visit Type: In Office Time Spent with Patient (minutes): 37 Provider Statement: I spent 100% of the Face to Face Visit with the patient with greater than 50% spent counseling the patient and coordination of care.
[2023-03-24 13:40] VITALS: BP 169/89; O2SAT 97
== END 2023-03-24 12:45 | disposition home or self-care (01) ==
LOC: SC 12:44
PROVIDERS: ATTEND Nurse Practitioner Family
DX: G47.33 Obstructive sleep apnea (adult) (pediatric) (principal); E11.9 Type 2 diabetes mellitus without complications; I10 Essential (primary) hypertension; E66.9 Obesity, unspecified; Z68.37 Body mass index [BMI] 37.0-37.9, adult
CPT/HCPCS: 99203; 99212

== ENCOUNTER 2023-03-30 10:54 | Outpatient (CLI) | payer BC ==
--- NOTE | 2023-03-30 15:35 | CT Report ---
PROCEDURE: PELVIS WO INDICATIONS: RIGHT HIP PAIN TECHNIQUE: Noncontrast 3 mm axial sections acquired through the bony pelvis, with coronal and sagittal reformatt ing. For radiation dose reduction, the following was used: automated exposure control, adjustment of mA and/or kV according to patient size. COMPARISON: CT of right lower extremity dated 08/10/2019. FINDINGS: Image quality: Diagnostic. Beam hardening artifacts from right hip prosthesis are seen. Bones: Patient is status post right total hip arthroplasty. Significant beam hardening artifacts are noted which partially limits the evaluation of right hip. There is no acute fracture or dislocation. No gross hardware loosening or failure. Moderate left hip joint osteoarthritic changes are noted wit h joint space narrowing, subchondral sclerosis and marginal osteophyte formation. Bilateral sacroilia c joint osteoarthritic changes also seen. No bony erosion or ankylosis is noted in sacroiliac joints. No evidence of avascular necrosis of femoral head. No suspicious bony lesions. Degenerative disc dis ease in visualized lower lumbar spine is seen. Soft tissues: There is no pelvic free fluid of free air. Sigmoid diverticulosis is seen without sigm oid colon wall thickening or mesenteric fat stranding. No abscess collection. Bladder wall thickness is normal. No pelvic lymphadenopathy by size criteria. No pelvic or hip soft tissue mass or drainable fluid collection is noted. IMPRESSION: 1. Prior right total hip arthroplasty. Right hip alignment is anatomic. No hardware loosening or fail ure. No periprosthetic fracture. 2. No pelvic fracture or dislocation. Osteoarthritic changes in left hip joint, symphysis pubis and b ilateral sacroiliac joints. No evidence of avascular necrosis of femoral head. No ankylosis or bony e rosion is seen in sacroiliac joints. Degenerative disc disease in visualized lower lumbar spine. 3. No gross pelvic soft tissue abnormalities. Reviewed by: Guilherme Soni MD on 03/30/2023 3:33 PM PST Approved by: Guilherme Soni MD on 03/30/2023 3:33 PM PST Station ID: [id number]
== END 2023-03-30 10:55 | disposition home or self-care (01) ==
LOC: DI 10:54
PROVIDERS: ATTEND Nurse Practitioner
DX: M25.551 Pain in right hip (principal); M16.12 Unilateral primary osteoarthritis, left hip; Z96.641 Presence of right artificial hip joint; M47.898 Other spondylosis, sacral and sacrococcygeal region; M51.36 Other intervertebral disc degeneration, lumbar region

== ENCOUNTER 2023-04-13 07:06 | Outpatient (CLI) | payer BC ==
[2023-04-13 12:11] LABS: BASOPHILS % (AUTO) 0.3 %; EOSINOPHILS # (AUTO) 0.2 10^3/uL (0.0-0.7); EOSINOPHILS % (AUTO) 2.4 %; HCT - HEMATOCRIT 46.7 % (42.0-52.0); HGB - HEMOGLOBIN 14.8 g/dL (14.0-18.0); LYMPHOCYTES # (AUTO) 1.5 10^3/uL (1.5-3.5); LYMPHOCYTES % (AUTO) 18.8 %; MEAN CORPUSCULAR HEMOGLOBIN 30.3 pg (27.0-31.0); MEAN CORPUSCULAR HGB CONC 31.7 g/dL (32.0-36.0); MEAN CORPUSCULAR VOLUME 95.5 fL (80.0-94.0); MONOCYTES # (AUTO) 0.8 10^3/uL (0.0-1.0); MONOCYTES % (AUTO) 10.1 %; NEUTROPHILS # (AUTO) 5.4 10^3/uL (1.5-6.6); PLT - PLATELET COUNT 257 10^3/uL (130-450); RED BLOOD COUNT 4.89 10^6/uL (4.70-6.10); WHITE BLOOD COUNT 7.9 x10^3/uL (4.8-10.8)
[2023-04-13 12:21] LABS: CALCIUM 9.9 mg/dL (8.5-10.3); CREATININE 1.1 mg/dL (0.6-1.3); POTASSIUM 4.2 mmol/L (3.5-4.5)
[2023-04-13 12:35] LABS: ESTIMATED AVERAGE GLUCOSE 151 mg/dL (70-100); HEMOGLOBIN A1c% 6.9 % (4.27-6.07)
[2023-04-13 12:41] LABS: FERRITIN 32.8 ng/mL (23.9-336.2)
== END 2023-04-13 07:07 | disposition home or self-care (01) ==
LOC: LAB.N 07:06
PROVIDERS: ATTEND Physician Assistant Medical
DX: E11.9 Type 2 diabetes mellitus without complications (principal); D64.9 Anemia, unspecified
CPT/HCPCS: 36415; 80048; 82728; 83036; 85025

== ENCOUNTER 2023-04-20 08:00 | Outpatient (CLI) | payer BC | END 2023-04-20 23:59 | disposition home or self-care (01) | LOC: LAB.N 08:00 | PROVIDERS: ATTEND Physician Assistant Medical | DX: R35.1 Nocturia (principal) | CPT/HCPCS: 87086 ==